=== PATIENT | male | born 1955 | race Caucasian/White ===

== ENCOUNTER → 2016-09-25 | Outpatient (CLI) | payer BC ==
[~2016-09-25] MED LIST: ASPI81TA28 PO; CLC6 PO; IBUP-103 PO; IBUP-1050 PO; METO25TA3 PO; METO50TA16 PO; METO50TA17 PO; TAMS0.4C38 PO; TYLOTC500 PO
--- NOTE | 2016-09-25 16:17 | ECHOCARDIOGRAM REPORT ---
*NOTICE TO RECEIVING REPUBLICAN AGENCY This information is strictly Confidential and protected under [place] law. [place] law prohibits you from making any further disclosure of this information unless further disclosure is expressly permitted by the written consent of the person to whom it pertains or is authorized by law. A general authorization for the release of medical or other information is not sufficient for this purpose. Hospital accepts no responsibility if the information is made available to any other person, INCLUDING THE PATIENT. Interpretation Summary * Name: ANA JOHNSON Study Date: 09/25/2016 01:51 PM BP: 145/90 mmHg * Patient Location: [facility] HR: 79 * : 1955 (M/d/yyyy) Gender: Male Height: 70 in * Age: 61 yrs Weight: 175 lb * Ordering Physician: GATITO MUELLER * Referring Physician: GATITO MUELLER * Performed By: Yvette Bueno RCS * * Reason For Study: AORTIC SCLEROSIS, MURMUR, R/O AORTIC STENOSIS * BSA: 2.0 m2 * -- Conclusions -- * Left ventricular systolic function is normal. * No regional wall motion abnormalities noted. * Ejection Fraction = 60-65%. * Prolapse or partial flail of the medial aspect of the posterior mitral leaflet. * There is severe mitral regurgitation. * The mitral regurgitant jet is anteriorly directed, which is consistent with posterior leaflet pathology. * There is mild tricuspid regurgitation. Procedure Details * A complete two-dimensional transthoracic echocardiogram was performed (2D, M-mode, Doppler and color flow Doppler). Left Ventricle * The left ventricle is normal in size. * There is normal left ventricular wall thickness. * Ejection Fraction = 60-65%. * Left ventricular systolic function is normal. * No regional wall motion abnormalities noted. Right Ventricle * The right ventricle is grossly normal size. * The right ventricular systolic function is normal as assessed by tricuspid annular plane systolic excursion (TAPSE) (normal >1.5 cm). Atria * The left atrium is mildly dilated. * Right atrium not well visualized. * No ASD detected; PFO is not assessed. Mitral Valve * Prolapse or partial flail of the medial aspect of the posterior mitral leaflet. * There is no mitral valve stenosis. * There is severe mitral regurgitation. * The mitral regurgitant jet is anteriorly directed, which is consistent with posterior leaflet pathology. Tricuspid Valve * The tricuspid valve is not well visualized, but is grossly normal. * There is mild tricuspid regurgitation. Aortic Valve * The aortic valve is trileaflet. * The aortic valve opens well. * Aortic valve sclerosis mild, without significant aortic valvular stenosis. * There is no significant aortic regurgitation. Pulmonic Valve * The pulmonary valve is not well seen, but the Doppler examination is normal without significant regurgitation or stenosis. Great Vessels * The aortic root and proximal ascending aorta are normal sized. * The pulmonary artery is not well visualized, but is probably normal size. Pericardium/Pleural * There is no pericardial effusion. Great Vessels * Dilated inferior vena cava with reduced collapsability with sniff indicates an elevated right atrial pressure of 15 mmHg MMode 2D Measurements and Calculations IVSd 1.3 cm IVSs 1.5 cm LVIDd 4.9 cm LVIDs 3.2 cm LVPWd 1.4 cm LVPWs 1.5 cm IVS/LVPW 0.97 FS 35.7 % EDV(Teich) 115.2 ml ESV(Teich) 40.3 ml EF(Teich) 65.0 % EDV(cubed) 120.9 ml ESV(cubed) 32.1 ml EF(cubed) 73.4 % % IVS thick 13.4 % % LVPW thick 12.2 % LV mass(C)d 266.2 grams LV mass(C)dI 135.0 grams/m\S\2 LV mass(C)s 170.3 grams LV mass(C)sI 86.4 grams/m\S\2 CO(Teich) 5.9 l/min CI(Teich) 3.0 l/min/m\S\2 SV(Teich) 74.9 ml SI(Teich) 38.0 ml/m\S\2 CO(cubed) 7.0 l/min CI(cubed) 3.6 l/min/m\S\2 SV(cubed) 88.8 ml SI(cubed) 45.0 ml/m\S\2 Ao root diam 3.3 cm Ao root area 8.7 cm\S\2 ACS 1.6 cm LA dimension 3.4 cm asc Aorta Diam 3.0 cm LA/Ao 1.0 LVOT diam 2.0 cm LVOT area 3.2 cm\S\2 LVAd ap4 36.4 cm\S\2 LVLd ap4 8.8 cm EDV(MOD-sp4) 124.0 ml LVAs ap4 20.5 cm\S\2 LVLs ap4 7.2 cm ESV(MOD-sp4) 50.0 ml EF(MOD-sp4) 59.7 % LVAd ap2 30.5 cm\S\2 LVLd ap2 8.5 cm EDV(MOD-sp2) 91.0 ml LVAs ap2 16.8 cm\S\2 LVLs ap2 6.8 cm ESV(MOD-sp2) 35.0 ml EF(MOD-sp2) 61.5 % CO(MOD-sp4) 5.8 l/min CI(MOD-sp4) 3.0 l/min/m\S\2 SV(MOD-sp4) 74.0 ml SI(MOD-sp4) 37.5 ml/m\S\2 CO(MOD-sp2) 4.4 l/min CI(MOD-sp2) 2.2 l/min/m\S\2 SV(MOD-sp2) 56.0 ml SI(MOD-sp2) 28.4 ml/m\S\2 Doppler Measurements and Calculations MV E max michelle 96.4 cm/sec MV A max michelle 72.5 cm/sec MV E/A 1.3 MV P1/2t max michelle 122.5 cm/sec MV P1/2t 98.7 msec MVA(P1/2t) 2.2 cm\S\2 MV dec slope 363.4 cm/sec\S\2 MV dec time 0.34 sec Ao V2 max 247.3 cm/sec Ao max PG 24.5 mmHg Ao max PG (full) 21.4 mmHg Ao V2 mean 179.2 cm/sec Ao mean PG 14.2 mmHg Ao mean PG (full) 12.4 mmHg Ao V2 VTI 46.7 cm NILDA(I,A) 1.0 cm\S\2 NILDA(I,D) 1.0 cm\S\2 NILDA(V,A) 1.1 cm\S\2 NILDA(V,D) 1.1 cm\S\2 LV V1 max PG 3.1 mmHg LV V1 mean PG 1.7 mmHg LV V1 max 88.3 cm/sec LV V1 mean 62.2 cm/sec LV V1 VTI 14.9 cm MR max michelle 362.0 cm/sec MR max PG 52.4 mmHg SV(Ao) 408.3 ml SI(Ao) 207.0 ml/m\S\2 SV(LVOT) 47.2 ml SI(LVOT) 23.9 ml/m\S\2 PA V2 max 209.9 cm/sec PA max PG 17.6 mmHg TR max michelle 260.6 cm/sec
== END | disposition home or self-care (01) ==
LOC: C.CPL 13:34
PROVIDERS: ATTEND Internal Medicine
DX: R01.1 Cardiac murmur, unspecified (principal); I08.3 Combined rheumatic disorders of mitral, aortic and tricuspid valves

== ENCOUNTER 2016-12-18 18:29 | Inpatient (IN) | payer BC ==
[~2016-12-18] VITALS: Ht 177.8 cm; Wt 59.8 kg
[2016-12-18] MEDS ORDERED: ADENOSINE IV SOLN 3 MG/ML 2 ML VIAL ONE ×2 (18:40→18:41)
--- NOTE | 2016-12-18 19:00 | EMERGENCY ROOM VISIT NOTE ---
History Report prepared by Jamel: Shayla Rodriguez Under the Supervision of: Caridad McguireO. First contact with patient: 18:40 Chief Complaint: IRREGULAR HEARTBEAT Stated Complaint: AFIB- S/P OPEN HEART SURGERY 11/30 History of Present Illness The patient is a 61 year old male who presents to the Emergency Room with complaints of constant heart palpitations starting about 5 hours ago. He also complains of some shortness of breath. He has a documented episode of SVT occurring about 10 years ago and he reports similar symptoms today. Since then, he has been having similar but milder episodes about once every month which are resolved with holding his breath. His last episode occurred about 3 days ago. He has a history of mitral valve repair on November 30 at [facility]. He had a heat catheterization in November which was clear. He denies any history of A- Fib. He is on Metoprolol. Pt denies headache, change in vision, fevers, chest pain, nausea, vomiting, diarrhea, pain with urination, and melena. Source of History: patient Onset: about 5 hours ago Position: chest Quality: other (heart palpitations) Timing: constant Associated Symptoms: + SOB, No chest pain, No diarrhea, No fevers, No headache, No nausea, No vomiting Review of Systems See HPI for pertinent positives & negatives. A total of 10 systems reviewed and were otherwise negative. Past Medical & Surgical Medical Problems: (1) No Known Active Medical Problems (2) SVT (supraventricular tachycardia) (3) SVT, POST MITRAL VALVE PROSTHESIS Surgical Problems: (1) H/O cardiac catheterization (2) History of mitral valve repair Family History Patient reports no known family medical history. Social History Smoking Status: Never Smoker Marital Status: Occupation Status: employed Current/Historical Medications Scheduled Aspirin (Aspirin Ec), 81 MG PO DAILY Metoprolol Succ (Toprol Xl) (Toprol-Xl), 12.5 MG PO BID Tamsulosin Hcl (Flomax), 0.4 MG PO DAILY Scheduled PRN Acetaminophen (Tylenol), 1,000 MG PO Q4 PRN for Pain Allergies Coded Allergies: No Known Allergies (Verified , 12/13/15) Physical Exam Vital Signs Date Time Temp Pulse Resp B/P Pulse Ox O2 Delivery O2 Flow Rate FiO2 12/18/16 22:35 102 5/30/17 22:31 Room Air 12/18/16 22:06 99 19 12/18/16 22:01 117/74 12/18/16 21:36 100 17 94 12/18/16 21:31 108/79 12/18/16 21:06 97 16 100 12/18/16 21:01 119/79 110/73 12/18/16 20:59 102 100 12/18/16 20:29 108 17 99 12/18/16 20:15 102/80 12/18/16 19:59 110 20 99 12/18/16 19:33 106/79 12/18/16 19:29 108 20 97 12/18/16 18:59 107 15 100 12/18/16 18:56 36.8 22 117/84 100 Room Air 12/18/16 18:54 117/84 12/18/16 18:53 79 12/18/16 18:48 186 Physical Exam GENERAL: Sitting up in bed, disheveled, mild distress, non-toxic EYE EXAM: normal conjunctiva OROPHARYNX: no exudate, no erythema, lips, buccal mucosa, and tongue normal and mucous membranes are moist NECK: supple, no nuchal rigidity, no adenopathy, non-tender CHEST: Old mid-sternal incision which is clean, dry, and intact LUNGS: Clear to auscultation. Normal chest wall mechanics HEART: Tachycardic rate. no murmurs, S1 normal and S2 normal ABDOMEN: abdomen soft, non-tender, normo-active bowel sounds, no masses, no rebound or guarding. BACK: Back is symmetrical on inspection and there is no deformity, no midline tenderness, no CVA tenderness. SKIN: no rashes and no bruising UPPER EXTREMITIES: upper extremities are grossly normal. LOWER EXTREMITIES: No pitting edema. Calves are equal bilaterally. NEURO EXAM: Normal sensorium, cranial nerves II-XII grossly intact, normal speech, no gross weakness of arms, no gross weakness of legs. Medical Decision & Procedures ER Provider Diagnostic Interpretation: X-ray results as stated below per my review and the radiologist's interpretation : SINGLE VIEW CHEST CLINICAL HISTORY: Dyspnea. FINDINGS: An AP, portable, upright chest radiograph is obtained. No prior studies are available for comparison at the time of dictation. The examination is degraded by portable technique and patient rotation. The patient is status post midline sternotomy and mitral valve surgery. The heart is enlarged. The pulmonary vasculature is noncongested. The lungs and pleural spaces are clear. No pneumothorax is seen. The skeletal structures appear osteopenic. The bony thorax is grossly intact. IMPRESSION: Cardiomegaly with no active disease in the chest. Electronically signed by: Henok Pisano M.D. 12/18/2016 7:19 PM Dictated Date/Time: 12/18/2016 7:[address]:Per my review, radiologist interpretation. CT ANGIOGRAM OF THE CHEST CLINICAL HISTORY: Atypical chest pain. COMPARISON STUDY: Chest x-ray dated 12/18/2016. TECHNIQUE: Following the IV administration of 115 cc of Optiray 320, CT angiogram of the chest was performed from the upper abdomen to the thoracic inlet utilizing the pulmonary embolus protocol. Images are reviewed in the axial, sagittal, and coronal planes. 3-D MIPS images are created and assessed. IV contrast was administered without complication. CT DOSE: 317.01 mGy.cm FINDINGS: Thyroid: Imaged portions of the thyroid gland are normal in size and attenuation. Thoracic aorta: There is mild atherosclerotic calcification of the thoracic aorta, which is normal in caliber and demonstrates standard 3-vessel arch anatomy. No dissection is seen. Pulmonary vasculature: The pulmonary trunk is normal in caliber. There are no filling defects identified in main, lobar, or segmental pulmonary branches to suggest pulmonary embolus. Heart: The patient is status post midline sternotomy and mitral valve surgery. The heart is enlarged and there is a small to moderate pericardial effusion. Reflux of contrast into the IVC and hepatic veins suggests cardiac dysfunction. Lungs and pleural spaces: There is bibasilar dependent atelectasis. No airspace consolidation or pleural effusion is identified. A 3 mm focus of nodular pleural thickening along the left major fissure is seen on image #87 and of doubtful significance. The trachea and central airways are clear. Mediastinum: Scattered subcentimeter mediastinal lymph nodes are not pathologically enlarged by size criteria. Cristin: Clear. Axillae: There is no axillary lymphadenopathy. Upper abdomen: Partially visualized upper abdominal viscera is within normal limits. Skeletal structures: The skeletal structures are osteopenic. No lytic or blastic bony lesions are seen. IMPRESSION: 1. There is no evidence of pulmonary embolus in the main, lobar, or segmental pulmonary arteries. 2. The lungs are clear noting dependent atelectasis. 3. Cardiomegaly noting a small to moderate pericardial effusion. 4. Additional findings as above. Electronically signed by: Henok Pisano M.D. 12/18/2016 9:02 PM Dictated Date/Time: 12/18/2016 8:57 PM Laboratory Results 12/18/16 19:22 Red Blood Count 4.17, Mean Corpuscular Volume 92.6, Mean Corpuscular Hemoglobin 29.5, Mean Corpuscular Hemoglobin Concent 31.9, Mean Platelet Volume 9.3, Neutrophils (%) (Auto) 78.3, Lymphocytes (%) (Auto) 13.8, Monocytes (%) (Auto) 6.9, Eosinophils (%) (Auto) 0.6, Basophils (%) (Auto) 0.3, Neutrophils # (Auto) 5.35, Lymphocytes # (Auto) 0.94, Monocytes # (Auto) 0.47, Eosinophils # (Auto) 0.04, Basophils # (Auto) 0.02 12/18/16 19:22 Test 12/18/16 19:22 White Blood Count 6.83 K/uL (4.8-10.8) Red Blood Count 4.17 M/uL (4.7-6.1) Hemoglobin 12.3 g/dL (14.0-18.0) Hematocrit 38.6 % (42-52) Mean Corpuscular Volume 92.6 fL (80-100) Mean Corpuscular Hemoglobin 29.5 pg (25-34) Mean Corpuscular Hemoglobin Concent 31.9 g/dl (32-36) Platelet Count 273 K/uL (130-400) Mean Platelet Volume 9.3 fL (7.4-10.4) Neutrophils (%) (Auto) 78.3 % Lymphocytes (%) (Auto) 13.8 % Monocytes (%) (Auto) 6.9 % Eosinophils (%) (Auto) 0.6 % Basophils (%) (Auto) 0.3 % Neutrophils # (Auto) 5.35 K/uL (1.4-6.5) Lymphocytes # (Auto) 0.94 K/uL (1.2-3.4) Monocytes # (Auto) 0.47 K/uL (0.11-0.59) Eosinophils # (Auto) 0.04 K/uL (0-0.5) Basophils # (Auto) 0.02 K/uL (0-0.2) RDW Standard Deviation 44.8 fL (36.4-46.3) RDW Coefficient of Variation 13.2 % (11.5-14.5) Immature Granulocyte % (Auto) 0.1 % Immature Granulocyte # (Auto) 0.01 K/uL (0.00-0.02) D-Dimer 3940 ug/L FEU (0-500) Anion Gap 8.0 mmol/L (3-11) Est Creatinine Clear Calc Drug Dose 60.1 ml/min Estimated GFR () 67.3 Estimated GFR (Non- 58.1 BUN/Creatinine Ratio 14.3 (10-20) Calcium Level 8.4 mg/dl (8.5-10.1) Magnesium Level 2.3 mg/dl (1.8-2.4) Total Bilirubin 0.3 mg/dl (0.2-1) Direct Bilirubin < 0.1 mg/dl (0-0.2) Aspartate Amino Transf (AST/SGOT) 119 U/L (15-37) Alanine Aminotransferase (ALT/SGPT) 106 U/L (12-78) Alkaline Phosphatase 179 U/L (45-117) Total Creatine Kinase 49 U/L (39-308) Creatine Kinase MB 1.7 ng/ml (0.5-3.6) Creatine Kinase MB Ratio 3.5 (0-3.0) Troponin I 0.082 ng/ml (0-0.045) Total Protein 6.4 gm/dl (6.4-8.2) Albumin 3.3 gm/dl (3.4-5.0) Thyroid Stimulating Hormone (TSH) 3.720 uIu/ml (0.300-4.500) Thyroxine (T4) 5.3 mcg/dl (4.5-10.9) Laboratory results per my review. Medications Administered Medications (Trade) Dose Ordered Sig/Krystal Route Start Time Stop Time Status Last Admin Dose Admin Adenosine 6 mg 6 mg STK-MED ONCE .ROUTE 12/18/16 18:41 12/18/16 18:42 DC 12/18/16 18:50 6 MG Sodium Chloride (Nss 1000ml) 1,000 ml @ 999 mls/hr Q1H1M STAT IV 12/18/16 20:25 12/18/16 21:25 DC 12/18/16 20:45 999 MLS/HR Metoprolol Tartrate (Lopressor Tab) 50 mg NOW STAT PO 12/18/16 22:34 12/18/16 22:37 DC 12/18/16 22:42 50 MG ECG Indication: palpitations Rate (beats per minute): 185 Rhythm: SVT Findings: ST depression (inferior and lateral leads), other (intraventricular conduction delay) Change: Repeat EKG showed sinus tachycardia, 106 beats per minute, ST depressions in inferior and lateral leads have now resolved, intraventricular conduction delay has now resolved. ED Course ED COURSE: Vital signs were reviewed and showed tachycardic. The patients medical record was reviewed The above diagnostic studies were performed and reviewed. ED treatments and interventions as stated above. 1839: The patient was evaluated in room B02. A complete history and physical examination was performed. 1840: Adenosine 6 mg IV 1849: He feels lightheaded but otherwise much better after the Adenosine. 2024: Sodium Chloride 1000 ml @ 999 mls/hr IV. I updated the patient. He is agreeable to a CTA. 2144: I discussed the patient's case with Dr. Torres, primary care physician with [facility]. Upon reevaluation, the patient is resting comfortably.I discussed my findings with the patient and he understands and agrees with the treatment plan. Based on the patients age, coexisting illnesses, exam and lab findings the decision to treat as an inpatient was made. The patient remained stable while under my care. The patient will be evaluated for further management. Medical Decision Differential diagnosis includes etiologies such as premature contractions, electrolyte abnormality, cardiac dysrhythmia, thyroid dysfunction, pulmonary embolism, infection, gastrointestinal, as well as others were entertained. Blood pressure screening: Patient was found to have normal blood pressure on screening and does not require follow-up. Medication Reconciliation: I attest that I have personally reviewed the patient' s current medication list. Patient is a 61-year-old male who presents to ER for palpitations. EKG was obtained and showed that he was in SVT. Heart rate was in the 180s. He was pale and ill-appearing at this time. Vagal maneuver was attempted but was unsuccessful. External defibrillator leads were attached patient was given 6 mg of adenosine. Following this he converted into a sinus tachycardia. ST depressions in the inferior leads improved. Patient does have a recent history of a mitral valve repair. Denies any blood thinners. CBC was unremarkable. BMP was unremarkable. Troponin was elevated at 0.08. Transaminitis was present. D-dimer was elevated and CT PE was performed. This did show a mild to moderate pericardial effusion. It also showed hepatic congestion which I favor secondary to his rate and the likely cause of the transaminitis. Based on his symptoms did elect to give him overnight and discussed this case with internal medicine. I do favor this elevated troponin is rate/demand related rather than ischemic. Consults Time Called: 2139 Consulting Physician: Dr. Torres, primary care physician with [facility] Returned Call: 2144 I discussed the patient's case with Dr. Torres, primary care physician with [facility]. Impression Primary Impression: SVT (supraventricular tachycardia) Additional Impressions: Elevated troponin Transaminitis Hepatic congestion Critical Care I have personally spent 35 minutes of critical care time in the direct management of this patient. This includes bedside care, interpretation of diagnostic studies, and testing, discussion with consultants, patient, and family members, and other required patient management activities. This 35 minutes is in excess of all separately billable procedures. Scribe Attestation The scribe's documentation has been prepared under my direction and personally reviewed by me in its entirety. I confirm that the note above accurately reflects all work, treatment, procedures, and medical decision making performed by me. Departure Information Dispostion Being Evaluated By Hospitalist Referrals Parish Patel M.D. (PCP) Patient Instructions My [facility] Problem Qualifiers
--- NOTE | 2016-12-18 19:20 | DIAGNOSTIC IMAGING REPORT ---
SINGLE VIEW CHEST CLINICAL HISTORY: Dyspnea. FINDINGS: An AP, portable, upright chest radiograph is obtained. No prior studies are available for comparison at the time of dictation. The examination is degraded by portable technique and patient rotation. The patient is status post midline sternotomy and mitral valve surgery. The heart is enlarged. The pulmonary vasculature is noncongested. The lungs and pleural spaces are clear. No pneumothorax is seen. The skeletal structures appear osteopenic. The bony thorax is grossly intact. IMPRESSION: Cardiomegaly with no active disease in the chest. Electronically signed by: Henok Pisano M.D. 12/18/2016 7:19 PM Dictated Date/Time: 12/18/2016 7:18 PM
[2016-12-18 19:35] LABS: BASO % 0.3 %; BASO ABS # 0.02 K/uL (0-0.2); COMPLETE YES; EOS % 0.6 %; HEMATOCRIT 38.6 % (42-52); IG% 0.1 %; LYMPH % 13.8 %; LYMPH ABS # 0.94 K/uL (1.2-3.4); MEAN CELL VOLUME 92.6 fL (80-100); MEAN CORPUSCULAR HEMOGLOBIN 29.5 pg (25-34); MEAN CORPUSCULAR HGB CONC 31.9 g/dl (32-36); MEAN PLATELET VOLUME 9.3 fL (7.4-10.4); MONO % 6.9 %; NEUT % 78.3 %; PLATELET COUNT 273 K/uL (130-400); RED BLOOD COUNT 4.17 M/uL (4.7-6.1); WHITE BLOOD COUNT 6.83 K/uL (4.8-10.8)
[2016-12-18] MEDS ORDERED: TYLOTC500 PO (19:36)
[2016-12-18] MEDS ORDERED: ASPI81TA28 PO (19:36)
[2016-12-18] MEDS ORDERED: TAMS0.4C38 PO (19:36)
[2016-12-18] MEDS ORDERED: METO25TA3 PO (19:36)
[2016-12-18 20:00] LABS: ALT/SGPT 106 U/L (12-78); AST/SGOT 119 U/L (15-37); BLOOD UREA NITROGEN 19 mg/dl (7-18); BUN/CREATININE RATIO 14.3 (10-20); CALCIUM 8.4 mg/dl (8.5-10.1); CARBON DIOXIDE 25 mmol/L (21-32); CHLORIDE 111 mmol/L (98-107); GLUCOSE 119 mg/dl (70-99); POTASSIUM 4.5 mmol/L (3.5-5.1); SODIUM 144 mmol/L (136-145)
[2016-12-18 20:10] LABS: ALKALINE PHOSPHATASE 179 U/L (45-117)
[2016-12-18] MEDS ORDERED: SODIUM CHLORIDE 0.9% 1000ML 1,000 ML IV STA (20:25)
[2016-12-18] MEDS ORDERED: OPTIRAY 320 IV PRN (21:00)
--- NOTE | 2016-12-18 21:03 | DIAGNOSTIC IMAGING REPORT ---
CT ANGIOGRAM OF THE CHEST CLINICAL HISTORY: Atypical chest pain. COMPARISON STUDY: Chest x-ray dated 12/18/2016. TECHNIQUE: Following the IV administration of 115 cc of Optiray 320, CT angiogram of the chest was performed from the upper abdomen to the thoracic inlet utilizing the pulmonary embolus protocol. Images are reviewed in the axial, sagittal, and coronal planes. 3-D MIPS images are created and assessed. IV contrast was administered without complication. CT DOSE: 317.01 mGy.cm FINDINGS: Thyroid: Imaged portions of the thyroid gland are normal in size and attenuation. Thoracic aorta: There is mild atherosclerotic calcification of the thoracic aorta, which is normal in caliber and demonstrates standard 3-vessel arch anatomy. No dissection is seen. Pulmonary vasculature: The pulmonary trunk is normal in caliber. There are no filling defects identified in main, lobar, or segmental pulmonary branches to suggest pulmonary embolus. Heart: The patient is status post midline sternotomy and mitral valve surgery. The heart is enlarged and there is a small to moderate pericardial effusion. Reflux of contrast into the IVC and hepatic veins suggests cardiac dysfunction. Lungs and pleural spaces: There is bibasilar dependent atelectasis. No airspace consolidation or pleural effusion is identified. A 3 mm focus of nodular pleural thickening along the left major fissure is seen on image #87 and of doubtful significance. The trachea and central airways are clear. Mediastinum: Scattered subcentimeter mediastinal lymph nodes are not pathologically enlarged by size criteria. Cristin: Clear. Axillae: There is no axillary lymphadenopathy. Upper abdomen: Partially visualized upper abdominal viscera is within normal limits. Skeletal structures: The skeletal structures are osteopenic. No lytic or blastic bony lesions are seen. IMPRESSION: 1. There is no evidence of pulmonary embolus in the main, lobar, or segmental pulmonary arteries. 2. The lungs are clear noting dependent atelectasis. 3. Cardiomegaly noting a small to moderate pericardial effusion. 4. Additional findings as above. Electronically signed by: Henok Pisano M.D. 12/18/2016 9:02 PM Dictated Date/Time: 12/18/2016 8:57 PM
[2016-12-18 22:31] VITALS: Ht 177.8 cm; Wt 59.8 kg
[2016-12-18] MEDS ORDERED: METOPROLOL TARTRATE 50 MG TAB PO STA (22:34)
[2016-12-18] MEDS ORDERED: LORAZEPAM 0.5 MG TAB PO PRN (22:45)
[2016-12-18] MEDS ORDERED: ACETAMINOPHEN 500 MG TAB PO PRN (22:45)
[2016-12-18 23:11] VITALS: O2SAT 96
[2016-12-18 23:14] LABS: CKMB/CK RATIO 3.5 (0-3.0); MAGNESIUM 2.3 mg/dl (1.8-2.4); THYROID STIMULATING HORMONE 3.72 uIu/ml (0.300-4.500)
[2016-12-19] VITALS (7 sets, daily range): BP systolic 95–129; BP diastolic 61–85; PULSE 81–99; TEMP 36.7–37.9; O2SAT 95–99
[2016-12-19 00:58] LABS: PARTIAL THROMBOPLASTIN RATIO 1.1; PROTHROMBIN TIME (PATIENT) 10.7 SECONDS (9.0-12.0)
[2016-12-19 01:13] LABS: CKMB/CK RATIO 3.5 (0-3.0)
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
[2016-12-19 06:16] LABS: BASO % 0.4 %; BASO ABS # 0.02 K/uL (0-0.2); COMPLETE YES; EOS % 1.4 %; HEMATOCRIT 35.8 % (42-52); IG% 0.4 %; LYMPH % 24.8 %; LYMPH ABS # 1.41 K/uL (1.2-3.4); MEAN CELL VOLUME 92.7 fL (80-100); MEAN CORPUSCULAR HEMOGLOBIN 30.1 pg (25-34); MEAN CORPUSCULAR HGB CONC 32.4 g/dl (32-36); MEAN PLATELET VOLUME 8.7 fL (7.4-10.4); MONO % 8.8 %; NEUT % 64.2 %; PLATELET COUNT 256 K/uL (130-400); RED BLOOD COUNT 3.86 M/uL (4.7-6.1); WHITE BLOOD COUNT 5.69 K/uL (4.8-10.8)
[2016-12-19 06:58] LABS: BUN/CREATININE RATIO 14.7 (10-20); CALCIUM 8.4 mg/dl (8.5-10.1); CREATININE 1.2 mg/dl (0.60-1.40)
[2016-12-19 07:05] LABS: CKMB/CK RATIO 4.6 (0-3.0)
[2016-12-19] MEDS: ASPIRIN 81 MG ECTAB PO SCH (07:40)
[2016-12-19] MEDS: TAMSULOSIN HCL 0.4 MG CAP PO SCH (07:41)
[2016-12-19] MEDS: DOCUSATE SODIUM 100 MG CAP PO SCH ×2 (07:41→21:58)
[2016-12-19] MEDS: METOPROLOL TARTRATE 50 MG TAB PO SCH ×2 (07:41→21:58)
--- NOTE | 2016-12-19 10:32 | CARDIOLOGY CONSULTATION ---
DATE OF CONSULTATION: 12/19/2016 DATE OF CONSULTATION: 12/19/2016. REFERRING PHYSICIAN: Parish Torres M.D. CHIEF COMPLAINT: SVT. HISTORY OF PRESENT ILLNESS: Mr. Sudhakar Nazario is a 61-year-old gentleman with a history of SVT who experienced an episode of prolonged tachycardia yesterday. The patient reports having had symptoms of palpitations and rapid heartbeat dating back several years. He has had documented narrow complex tachycardia in the past and was treated with adenosine during the initial episode. Since that time he has infrequent and relatively brief episodes of tachycardia that last approximately 10-15 minutes. They occur perhaps twice per month and are not precipitated by any specific activity or change in position. He commonly can hold his breath and terminate the episodes. He does not appear to have associated symptoms. The patient was also discovered recently to have severe mitral regurgitation associated with a prolapsing segment of the posterior leaflet. He was seen at [facility] and underwent mitral valve repair on 11/30/2016. The procedure itself was uncomplicated and the patient has been recovering. He states that since his operation he has felt progressively better and is nearly back to his baseline. He states that currently he has an element of fatigue, but no significant dyspnea and minimal chest discomfort except with certain motions or stretching of the chest. Prior to his mitral valve repair the patient did report an element of exercise intolerance which prompted his evaluation. He did not have any chest pain leading up to his surgery. Yesterday his episode began without provocation and lasted approximately 5 hours prior to an evaluation at the [facility]. In the Emergency Room, he was reported to have a narrow complex tachycardia with some element of intraventricular conduction delay. Based on his history and EKG he was administered adenosine with termination of the arrhythmia. Overnight, the patient claims to have been feeling well. This morning he states his breathing is good. He denies any symptoms of chest discomfort. He is not aware of any current palpitations. PAST MEDICAL HISTORY: Significant for: 1. Mitral regurgitation status post repair of the posterior leaflet on 11/30/2016. 2. Ligation of left atrial appendage on 11/30/2016. 3. Mitral valve annuloplasty. 4. History of carpal tunnel syndrome, status post release. 5. Colonic polyps. PAST SURGICAL HISTORY: Includes: 1. Aforementioned mitral valve repair, left atrial appendage ligation and mitral valve annuloplasty. 2. Inguinal hernia repair. 3. Right carpal tunnel release. CURRENT MEDICATIONS: Include metoprolol 12.5 mg b.i.d., aspirin 81 mg daily, Flomax 0.4 mg daily, Tylenol p.r.n. basis. MEDICAL ALLERGIES: None. FAMILY HISTORY: Mother appeared to have premature coronary disease having of a myocardial infarction in her 50s. According to the patient, she was a smoker and was otherwise in poor health. Father at 92. No family history of premature cardiac , unexplained deaths, or tachyarrhythmias. No family history of frequent syncope. SOCIAL HISTORY: The patient is nonsmoker and drinks socially. 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 REVIEW OF SYSTEMS: Complete 10-system review of systems was performed and the pertinent positives noted in the history of present illness, the remainder being negative. PHYSICAL EXAMINATION: GENERAL: The patient does not appear to be in acute distress. He is a pleasant individual who is alert and oriented. His mood and affect appeared normal. He answered all questions appropriately. CURRENT VITAL SIGNS: Include blood pressure 112/71 with pulse of 89. HEAD, EYES, EARS, NOSE, AND THROAT: His sclerae are anicteric. Pupils are equal, reactive to light and accommodation. Extraocular movements were intact. Palpation of submandibular region did not reveal any significant lymphadenopathy. The carotids are palpable bilaterally. There are no bruits on auscultation. I did not appreciate any element of jugular venous distention. The thyroid is not enlarged. LUNGS: Auscultation of both lung jeffery reveal them to be clear. There were no rales, wheezes or rhonchi. He appeared to have good respiratory effort without use of accessory muscles. CARDIAC EXAMINATION: Revealed him to be in a regular rhythm. S1 and S2 appeared to be normal. There were no murmurs on exam. He had a sternotomy scar that appeared to be healing well. ABDOMEN: Soft and nontender. EXTREMITIES: Evaluation of both wrists revealed radial pulses that were equal in intensity. There is no evidence of cyanosis or clubbing. Evaluation of lower extremities did not reveal any significant peripheral edema. I did not appreciate any rashes on exam today. LABORATORY STUDIES: Obtained at [facility] include a white cell count of 5.6, hemoglobin of 11.6, a platelet count of 256. Sodium 146, potassium is 4.0, BUN was 18, creatinine was 1.2. Initial AST was 119, now down to 41. Initial ALT was 106, now down to 77. Initial cardiac troponin was 0.082, most recent being 0.19. A 12-lead EKG was available for review. This revealed a sinus tachycardia. Imaging studies were performed at the time of admission which included a chest x-ray which demonstrated mild cardiomegaly but no active pulmonary disease. A chest CTA was also performed which excluded the presence of pulmonary embolus. There was evidence of pericardial effusion. I reviewed his records from [facility] including report of his cardiac catheterization in October 2016. This revealed normal coronary arteries without evidence of significant obstructive coronary disease. ASSESSMENT AND PLAN: 1. Supraventricular tachycardia: While I did not have an opportunity to review the presenting arrhythmia his history and response to adenosine suggests this is reentrant arrhythmia. He is known to have preserved left ventricular systolic function. Generally speaking, he had few symptoms associated with the arrhythmia and outside of the extended episode yesterday he felt well. We discussed the options for treatment including no change in treatment, medical therapy or catheter based treatment. His beta jennifer was increased last night and at this point he is in favor of continuing medical therapy. If he continues to tolerate the higher dose of beta jennifer this would seem to be a reasonable treatment plan. If he continues to have symptomatic episodes, more prolonged episodes or begins to affect his lifestyle catheter based therapy can be entertained. 2. Elevated cardiac biomarkers: The patient did have mildly elevated cardiac troponins likely related to an extended period of high heart rates. He is known to have normal coronary arteries and had no symptoms of chest discomfort or coronary insufficiency associated with the extended episode yesterday. At this point, I do not feel any additional ischemic evaluation is necessary. 3. Mitral regurgitation: The patient is status post repair. His examination is normal and I suspect he has had a successful procedure. He is currently regaining his strength and stamina, and has not developed any recurrent dyspnea associated with activity. 4. Pericardial effusion: This was described as mild to moderate on a CT scan. This is not unusual after surgery of his nature. He has an echocardiogram ordered for later today and we will evaluate the effusion on that study. LUIS
--- NOTE | 2016-12-19 13:06 | ECHOCARDIOGRAM REPORT ---
*NOTICE TO RECEIVING CONSTITUTION PARTY AGENCY This information is strictly Confidential and protected under [place] law. [place] law prohibits you from making any further disclosure of this information unless further disclosure is expressly permitted by the written consent of the person to whom it pertains or is authorized by law. A general authorization for the release of medical or other information is not sufficient for this purpose. Hospital accepts no responsibility if the information is made available to any other person, INCLUDING THE PATIENT. Interpretation Summary * Name: ANA JOHNSON Study Date: 12/19/2016 10:19 AM BP: 112/71 mmHg * Patient Location: [facility] HR: 89 * : 1955 (M/d/yyyy) Gender: Male Height: 70 in * Age: 61 yrs Ethnicity: CA Weight: 178 lb * Ordering Physician: Parish Patel * Referring Physician: Self, Referred * Performed By: Brina Christensen RDCS * * Reason For Study: SVT, PERICARDIAL EFFUSION, MVR * BSA: 2.0 m2 * History: SVT, POST MVR * -- Conclusions -- * There is mild concentric left ventricular hypertrophy. * Left ventricular systolic function is low normal. * Septal motion is consistent with post-operative state. * The left atrium is mildly dilated. * The posterior mitral leaflet is thickened and fixed consistent with prior mitral repair surgery. * There is no mitral regurgitation noted. * Very small and mostly posterior pericardial effusion. * Compared to a study from 09/2016, there has been interim repair of the mitral valve Procedure Details * A complete two-dimensional transthoracic echocardiogram was performed (2D, M-mode, Doppler and color flow Doppler). Left Ventricle * The left ventricle is normal in size. * There is mild concentric left ventricular hypertrophy. * Ejection Fraction = 50-55%. * Left ventricular systolic function is low normal. * Septal motion is consistent with post-operative state. Right Ventricle * The right ventricle is grossly normal size. * The right ventricular systolic function is normal. Atria * The left atrium is mildly dilated. * Right atrial size is normal. Mitral Valve * The posterior mitral leaflet is thickened and fixed consistent with prior mitral repair surgery. * There is no mitral valve stenosis. * There is no mitral regurgitation noted. * An annuloplasty ring is noted in the mitral position. Tricuspid Valve * The tricuspid valve is not well visualized, but is grossly normal. * Significant tricuspid regurgitation is absent. Aortic Valve * The aortic valve is not well visualized. * No hemodynamically significant valvular aortic stenosis. * There is no significant aortic regurgitation. Great Vessels * The aortic root is normal size. Pericardium/Pleural * Very small and mostly posterior pericardial effusion. Great Vessels * Normal inferior vena cava diameter and respiratory variation suggests normal central venous pressure. MMode 2D Measurements and Calculations IVSd 1.4 cm IVSs 1.9 cm LVIDd 4.5 cm LVIDs 3.5 cm LVPWd 1.4 cm LVPWs 1.5 cm IVS/LVPW 1.0 FS 22.4 % EDV(Teich) 90.6 ml ESV(Teich) 49.5 ml EF(Teich) 45.4 % EDV(cubed) 88.8 ml ESV(cubed) 41.4 ml EF(cubed) 53.3 % % IVS thick 39.2 % % LVPW thick 12.8 % LV mass(C)d 238.4 grams LV mass(C)dI 120.0 grams/m\S\2 LV mass(C)s 242.8 grams LV mass(C)sI 122.2 grams/m\S\2 SV(Teich) 41.1 ml SI(Teich) 20.7 ml/m\S\2 SV(cubed) 47.4 ml SI(cubed) 23.8 ml/m\S\2 Ao root diam 3.7 cm Ao root area 10.5 cm\S\2 LA dimension 4.1 cm LA/Ao 1.1 LVAd ap4 32.0 cm\S\2 LVLd ap4 7.8 cm EDV(MOD-sp4) 110.8 ml EDV(sp4-el) 111.8 ml LVAs ap4 24.2 cm\S\2 LVLs ap4 8.0 cm ESV(MOD-sp4) 65.9 ml ESV(sp4-el) 62.6 ml EF(MOD-sp4) 40.5 % EF(sp4-el) 44.0 % LVAd ap2 35.2 cm\S\2 LVLd ap2 9.2 cm EDV(MOD-sp2) 109.7 ml EDV(sp2-el) 114.5 ml LVAs ap2 23.9 cm\S\2 LVLs ap2 8.0 cm ESV(MOD-sp2) 58.4 ml ESV(sp2-el) 60.5 ml EF(MOD-sp2) 46.8 % EF(sp2-el) 47.1 % LVLd %diff 15.3 % EDV(MOD-bp) 120.5 ml LVLs %diff 0.56 % ESV(MOD-bp) 61.4 ml EF(MOD-bp) 49.0 % SV(MOD-sp4) 44.8 ml SI(MOD-sp4) 22.6 ml/m\S\2 SV(MOD-sp2) 51.3 ml SI(MOD-sp2) 25.8 ml/m\S\2 SV(MOD-bp) 59.1 ml SI(MOD-bp) 29.7 ml/m\S\2 SV(sp4-el) 49.2 ml SI(sp4-el) 24.8 ml/m\S\2 SV(sp2-el) 54.0 ml SI(sp2-el) 27.2 ml/m\S\2 Doppler Measurements and Calculations MV E max michelle 144.0 cm/sec MV A max michelle 132.9 cm/sec MV E/A 1.1 MV dec time 0.33 sec Ao V2 max 119.0 cm/sec Ao max PG 5.7 mmHg Ao max PG (full) 2.4 mmHg LV V1 max PG 3.3 mmHg LV V1 max 90.4 cm/sec
--- NOTE | 2016-12-20 01:11 | PROGRESS NOTE ---
DATE: 12/19/2016 SUBJECTIVE: A 61-year-old male admitted with supraventricular tachycardia. He underwent a mitral valve repair 2 weeks ago because of severe mitral regurgitation and a flail posterior mitral valve leaflets. He is doing well. He was treated initially with Adenocard in the Emergency Room and he converted back to sinus rhythm. He has not had any recurrence of his SVT. His metoprolol dose was increased to 50 mg twice a day. He denied any headache or dizziness or lightheadedness. No chest pain, no shortness of breath. No abdominal pain, no nausea or vomiting. No pain in his back or extremities. PHYSICAL EXAMINATION: GENERAL: Well developed in no distress. VITAL SIGNS: Blood pressure 112/71, pulse 89, respirations 20, temperature 36.8, oxygen saturation 97% on room air. SKIN: Warm and dry. No rash. HEENT: No mucosal abnormality. NECK: No JVD. No adenopathy. HEART: Regular heart sounds. LUNGS: Clear. ABDOMEN: Soft, nontender. EXTREMITIES: No edema, clubbing, or cyanosis. TODAY'S LABORATORY TESTS: WBC count 5690, hemoglobin 11.6, hematocrit 35.8, platelet count 256,000. Sodium 146, potassium 4.0, chloride 112, CO2 28, BUN 18, creatinine 1.2, glucose 100. Calcium 8.4, total bilirubin 0.4, AST 41, ALT 77, alkaline phosphatase 144, total CK 39, MB fraction 1.8, troponin I 0.194, total protein 5.8, albumin 2.9. His echocardiogram was done. Showed the postoperative changes. ASSESSMENT: 1. Supraventricular tachycardia. 2. Status post repair of mitral valve for severe mitral regurgitation. 3. Abnormal liver enzymes which have markedly improved. 4. Elevated troponin I, most likely related to his recent surgery and his episode of prolonged supraventricular tachycardia. PLAN: 1. Continuing the same medications. 2. Encouraged ambulation. 3. The patient was seen in cardiology consultation by Dr. Max. 4. We will continue monitoring his rate and rhythm. If he remains stable, I anticipate send him home on 12/20/2016. [facility]FFEE HOSPITALBijan
[2016-12-20 03:48] VITALS: BP 107/74; PULSE 90; TEMP 37.1; O2SAT 95
[2016-12-20 06:33] LABS: BASO % 0.3 %; BASO ABS # 0.02 K/uL (0-0.2); COMPLETE YES; EOS % 0.6 %; HEMATOCRIT 35.6 % (42-52); IG% 0.2 %; MEAN CELL VOLUME 91.5 fL (80-100); MEAN CORPUSCULAR HEMOGLOBIN 30.6 pg (25-34); MEAN CORPUSCULAR HGB CONC 33.4 g/dl (32-36); MEAN PLATELET VOLUME 8.8 fL (7.4-10.4); MONO % 8.9 %; PLATELET COUNT 246 K/uL (130-400); RED BLOOD COUNT 3.89 M/uL (4.7-6.1)
[2016-12-20 07:15] LABS: BUN/CREATININE RATIO 14.9 (10-20); CALCIUM 8.3 mg/dl (8.5-10.1); CREATININE 1.1 mg/dl (0.60-1.40)
[2016-12-20 07:50] VITALS: BP 108/65; PULSE 100; TEMP 36.8; O2SAT 97
[2016-12-20] MEDS ORDERED: METO50TA17 PO (07:51)
--- NOTE | 2016-12-20 07:55 | Discharge Instructions ---
Discharge Instructions Date of Service Dec 20, 2016. Admission Reason for Admission: Svt, Post Mitral Valve Prothesis Discharge Discharge Diagnosis / Problem: SUPRAVENTRICULAR TACHYCARDIA Discharge Goals Goal(s): Decrease discomfort, Increase independence, Improve disease control Activity Recommendations Activity Limitations: resume your previous activity . Instructions / Follow-Up Instructions / Follow-Up DR KUMAR IN ONE WEEK DR DYKES SCHEDULED Current Hospital Diet Patient's current hospital diet: AHA Diet (Heart Healthy) Discharge Diet Recommended Diet: Regular Diet Pending Studies Studies pending at discharge: no Medical Emergencies . Who to Call and When: Medical Emergencies: If at any time you feel your situation is an emergency, please call 911 immediately. . Non-Emergent Contact Non-Emergency issues call your: Primary Care Provider . . "Provider Documentation" section prepared by Parish Kumar. . VTE Core Measure Inpt VTE Proph given/why not?: Treatment not indicated
[2016-12-20] MEDS: METOPROLOL TARTRATE 50 MG TAB PO SCH (08:39)
[2016-12-20] MEDS: DOCUSATE SODIUM 100 MG CAP PO SCH (08:39)
[2016-12-20] MEDS: TAMSULOSIN HCL 0.4 MG CAP PO SCH (08:39)
[2016-12-20] MEDS: ASPIRIN 81 MG ECTAB PO SCH (08:40)
[2016-12-20 08:43] VITALS: BP 108/65; PULSE 100; TEMP 36.8; O2SAT 97
--- NOTE | 2016-12-20 21:05 | PROGRESS NOTE ---
DATE: 12/20/2016 SUBJECTIVE: A 61-year-old male admitted with supraventricular tachycardia. Initially, his heart rate was at 185 beats per minute. He was treated with Adenocard and he converted back to normal sinus rhythm. The patient underwent repair of his mitral valve 2 weeks prior to his admission because of severe mitral regurgitation and markedly prolapsed and flail posterior mitral valve leaflets. The patient did well after his admission. He was continued on metoprolol, but the dose was increased to 50 mg twice a day. The patient was seen in cardiology consultation by Dr. Max. An echocardiogram was done. It showed the postoperative changes. No other abnormality was noted. As noted, the patient did not have any recurrence of his supraventricular tachycardia. He was completely asymptomatic. He was ambulating. PHYSICAL EXAMINATION: GENERAL: Well developed in no distress. VITAL SIGNS: Blood pressure 108/65, pulse 100, respirations 16, temperature 36.8, oxygen saturation 97% on room air. SKIN: Warm and dry. No rash. HEENT: No mucosal abnormality. NECK: No JVD. No adenopathy. HEART: Regular heart sounds. LUNGS: Clear. ABDOMEN: Soft, nontender. EXTREMITIES: No edema, clubbing, or cyanosis. TODAYS' LABORATORY TESTS: WBC count 6500, hemoglobin 11.9, hematocrit 35.6, platelet count 246,000. Sodium 142, potassium 4.0, chloride 107, CO2 28, BUN 16, creatinine 1.1, glucose 109. Calcium 8.3, total bilirubin 0.8, AST 19, ALT 54, alkaline phosphatase 133, total protein 5.9, and albumin 3.0. ASSESSMENT: 1. Supraventricular tachycardia. 2. Status post repair of his mitral valve. PLAN: 1. Overall, his condition improved. He remains stable. Not having any problems as far as any recurrence of his SVT. He is ambulating and tolerating his diet. 2. The patient was discharged home today. 3. He is to follow up with Dr. Max as scheduled in the middle of the month. 4. I will see him in the office in 1 week. 5. He did have an episode of urinary retention after his surgery and he was started on Flomax. At this time, I will just keep him off the Flomax and monitor for any recurrence of any urinary symptoms.
--- NOTE | 2016-12-23 21:31 | DISCHARGE SUMMARY ---
DISCHARGE DIAGNOSES: 1. Supraventricular tachycardia. 2. Status post repair of mitral valve for severe mitral valve prolapse and flail posterior mitral valve leaflet. DISCHARGE MEDICATIONS: Include: 1. Metoprolol tartrate 50 mg p.o. twice a day. 2. Aspirin 81 mg daily. CONSULTATIONS: 1. Dr. Mason Max in cardiology. HISTORY OF PRESENT ILLNESS: Mr. Nazario is a 61-year-old male admitted through the Emergency Room with multiple problems including supraventricular tachycardia with a rate of 185 beats per minute. He had a recent mitral valve surgery for severe mitral valve regurgitation related to severe prolapse and flail posterior mitral valve leaflet. He also had elevation of his troponin I and his liver enzymes. The patient with a history of supraventricular tachycardia, the first episode occurring back in 2005. Initially, he was treated with oral metoprolol, but then the medication was discontinued. Recently, he had an echocardiogram done because of known mitral regurgitation and Dr. Pacheco suspected a flail mitral valve leaflet. He had severe mitral regurgitation. The patient was referred to [facility] where he had a cardiac catheterization did not show any evidence of coronary artery disease and subsequently he had repair of his mitral valve. The patient stated that on Saturday prior to his admission, he had a short episode where he felt that his heart was racing, but he was able to control it, only lasted for about 15 seconds, but on the day of admission, this episode started around noontime and it persisted until he came to the Emergency Room. He was seen by Dr. Dueñas. He was treated with IV Adenocard and his arrhythmia was controlled. His D-dimer was elevated. A CT scan of the chest was done. There was no evidence of any pulmonary embolism. I saw the patient in the Emergency Room and he was admitted for further treatment. PAST MEDICAL HISTORY, SOCIAL HISTORY AND FAMILY HISTORY: All as noted. ALLERGIES: None. MEDICATIONS ON ADMISSION: All as noted on his home medication list. PHYSICAL EXAMINATION AND ADMISSION LABORATORY TESTS: All as noted. HOSPITAL COURSE: The patient was admitted to PCU with telemetry. Resuscitation level 1. Laboratory tests were ordered. Cardiac isoenzymes and serial electrocardiograms were ordered. Liver chemistries were also ordered. Echocardiogram was ordered. His metoprolol dose was changed to 50 mg twice a day. Cardiology consultation was requested from Dr. Mason Max. The patient was scheduled to see him for cardiology followup in mid December for the first visit after his mitral valve surgery. The patient was admitted. He was monitored. He did not have any evidence of any recurrence of his supraventricular tachycardia. He did exhibit at times premature ventricular contractions. His echocardiogram was quite unremarkable. There were no issues related to his mitral valve surgery. He was seen in consultation by Dr. Max. He was continued on his same medication. The option of ablation treatment was discussed with the patient by Dr. Max. This in case his arrhythmia becomes more persistent and frequent. Overall, his hospitalization and was unremarkable. He did not have any recurrence of his arrhythmias. His liver enzymes decreased to the normal range. His troponin I also decreased. The patient was ambulating. Tolerating his diet. He had no complaints. He was discharged home. Medication as noted above. Follow up with Dr. Max as scheduled. Follow up with me in the office in 1 week.
[2017-03-26] MEDS ORDERED: METO50TA16 PO (07:41)
[2017-03-26] MEDS ORDERED: IBUP-103 PO (07:41)
== END 2016-12-20 10:07 | disposition home or self-care (01) | DRG 309 ==
LOC: ENRESERVDT → ENRESERVTM → C.EDB 18:30 → C.2T 22:48
PROVIDERS: ADMIT Internal Medicine; ATTEND Internal Medicine
DX: I47.1 Supraventricular tachycardia (principal); I31.3 Pericardial effusion (noninflammatory); R33.8 Other retention of urine; R79.1 Abnormal coagulation profile; R78.89 Finding of other specified substances, not normally found in blood; R74.0 Nonspecific elevation of levels of transaminase and lactic acid dehydrogenase [LDH]; Z79.899 Other long term (current) drug therapy; Z79.82 Long term (current) use of aspirin; Z98.890 Other specified postprocedural states; Z82.49 Family history of ischemic heart disease and other diseases of the circulatory system; Z80.42 Family history of malignant neoplasm of prostate

== ENCOUNTER 2017-02-18 10:18 | Inpatient (IN) | payer BC ==
[~2017-02-18] VITALS: Ht 177.8 cm; Wt 86.3 kg
[~2017-02-18 10:18] MED LIST changes: -CLC6 PO; -IBUP-103 PO; -IBUP-1050 PO; -METO25TA3 PO; -METO50TA16 PO; -TAMS0.4C38 PO; -TYLOTC500 PO
[2017-02-18] MEDS ORDERED: ADENOSINE IV SOLN 3 MG/ML 2 ML VIAL IV STA (10:33)
[2017-02-18] MEDS ORDERED: ADENOSINE IV SOLN 3 MG/ML 2 ML VIAL ONE (10:35)
[2017-02-18 10:49] LABS: BASO % 0.1 %; BASO ABS # 0.01 K/uL (0-0.2); COMPLETE YES; EOS % 0.1 %; HEMATOCRIT 42.8 % (42-52); IG% 0.3 %; LYMPH % 9.8 %; LYMPH ABS # 1.17 K/uL (1.2-3.4); MEAN CELL VOLUME 85.9 fL (80-100); MEAN CORPUSCULAR HEMOGLOBIN 28.5 pg (25-34); MEAN CORPUSCULAR HGB CONC 33.2 g/dl (32-36); MEAN PLATELET VOLUME 10.9 fL (7.4-10.4); NEUT % 81.7 %; PLATELET COUNT 198 K/uL (130-400); RED BLOOD COUNT 4.98 M/uL (4.7-6.1); WHITE BLOOD COUNT 11.97 K/uL (4.8-10.8)
[2017-02-18 10:57] LABS: INR 1.1 (0.9-1.1); PARTIAL THROMBOPLASTIN RATIO 1.1; PROTHROMBIN TIME (PATIENT) 11.9 SECONDS (9.0-12.0)
[2017-02-18] MEDS ORDERED: OPTIRAY 320 IV PRN (11:00)
--- NOTE | 2017-02-18 11:04 | DIAGNOSTIC IMAGING REPORT ---
CHEST ONE VIEW PORTABLE HISTORY: Evaluate Fever/Sepsis COMPARISON: Chest 12/18/2016. FINDINGS: No pneumothorax. Trace left pleural effusion. Left basilar linear densities have progressed. The heart is mildly enlarged. This is increased in size. Poststernotomy changes and a mitral valve ring are again noted. The right lung is clear. IMPRESSION: Trace left pleural effusion and left basilar densities have progressed. This may represent atelectasis or pneumonia. Mild cardiomegaly has also increased in size. Electronically signed by: Walter Ellington M.D. 02/18/2017 11:03 AM Dictated Date/Time: 02/18/2017 11:01 AM
[2017-02-18 11:12] LABS: ALT/SGPT 57 U/L (12-78); BLOOD UREA NITROGEN 27 mg/dl (7-18); BUN/CREATININE RATIO 14.4 (10-20); CALCIUM 8.7 mg/dl (8.5-10.1); CARBON DIOXIDE 28 mmol/L (21-32); CHLORIDE 98 mmol/L (98-107); GLUCOSE 192 mg/dl (70-99); SODIUM 134 mmol/L (136-145)
[2017-02-18 11:23] LABS: ALKALINE PHOSPHATASE 221 U/L (45-117); AST/SGOT 50 U/L (15-37)
--- NOTE | 2017-02-18 11:44 | DIAGNOSTIC IMAGING REPORT ---
CT SCAN OF THE ABDOMEN AND PELVIS WITHOUT CONTRAST CLINICAL HISTORY: Generalized abdominal pain. Fever, sepsis. COMPARISON STUDY: No previous studies for comparison. TECHNIQUE: CT scan of the abdomen and pelvis was performed from the lung bases to the proximal femurs. Images are reviewed in the axial, sagittal, and coronal planes. IV contrast was not administered for this examination. A dose lowering technique was utilized adhering to the principles of ALARA. CT DOSE: 369.56 mGy.cm FINDINGS: Lower chest: There is a moderate pericardial effusion. There are small bilateral pleural effusions. There are bibasal atelectatic changes. There is a small amount of air within the right atrium, likely iatrogenic Liver: The unenhanced liver is normal in size, contour, and attenuation. There is no intrahepatic biliary ductal dilatation. Gallbladder: There is a large noncalcified filling defect within the gallbladder consistent with a gallstone or large sludge ball. Spleen: Normal in size and attenuation. Pancreas: Unremarkable. Adrenal glands: Unremarkable. Kidneys: No renal, ureteral, or bladder calculi are visualized. Bowel: There are no transition zones to indicate bowel obstruction. The appendix appears normal as visualized. There is no acute diverticulitis. Peritoneum: There is no intraperitoneal free air or abdominal ascites. There is minimal increased density of intraperitoneal fat. Vasculature: The abdominal aorta is normal in course and caliber. Adenopathy: None. Pelvic viscera: There is mild bladder wall thickening. The prostate is prominent. Skeletal structures: No destructive osseous lesions are seen. IMPRESSION: 1. No evidence of bowel obstruction. No evidence of free air 2. No renal, ureteral, or bladder calculi identified 3. Large noncalcified gallstone versus sludge ball 4. Small bilateral pleural effusions 5. Moderate pericardial effusion 6. No evidence of acute appendicitis. No evidence of acute diverticulitis. Electronically signed by: Hunter Mohan M.D. 02/18/2017 11:43 AM Dictated Date/Time: 02/18/2017 11:38 AM
[2017-02-18] MEDS ORDERED: ONDANSETRON INJ 8 MG in DEXTROSE 5% 50ML 50 ML IV PRN (13:30)
[2017-02-18 13:44] VITALS: O2SAT 100; Ht 177.8 cm; Wt 86.3 kg
[2017-02-18] MEDS ORDERED: ACETAMINOPHEN 325 MG TAB PO PRN (13:45)
--- NOTE | 2017-02-18 14:40 | EMERGENCY ROOM VISIT NOTE ---
History Report prepared by Jamel: Meghan Boogie Under the Supervision of: Dr. Jaya Herrera D.O. First contact with patient: 10:29 Chief Complaint: TACHYCARDIA Stated Complaint: NAUSEA, FAST HEARTBEAT History of Present Illness The patient is a 61 year old male who presents to the Emergency Room with complaints of constant tachycardia that started 2 hours ago, around 0830. The patient is also experiencing nausea, abdominal bloating, and abdominal cramping which both started 4 days ago. The patient's states that he has not eaten much over the last 4 days. He denies melena and hematochezia. The patient was evaluated by his PCP, Dr. Torres, this morning and he recommended coming into the ED for further evaluation. The patient's states that he experienced an episode of diarrhea while he was at his PCP's office today and he experienced 1 episode yesterday. The patient is also experiencing neck stiffness and pain that started this morning when he woke up. His adds that he is also experiencing back pain which is new for him. The patient had his mitral valve repaired in November. The patient's states that the surgery was successful but the patient has been experiencing intermittent tachycardia since then. The patient was evaluated in the ED on December 18 for similar symptoms. The patient was cardioverted with adenosine at that time. The patient's states that the patient was admitted after that episode of tachycardia. The patient's adds that the patient experienced a tick bite 1 month ago. She states that he never had a rash following the tick bite. Source of History: patient Onset: 2 hours ago, around 0830 Position: chest Quality: other (tachycardia) Timing: constant Associated Symptoms: + neck pain (and stiffness), + nausea, + abdominal pain (cramping), + back pain, + diarrhea, No melena, No hematochezia Note: abdominal bloating Review of Systems See HPI for pertinent positives & negatives. A total of 10 systems reviewed and were otherwise negative. Past Medical & Surgical Medical Problems: (1) No Known Active Medical Problems (2) SVT (supraventricular tachycardia) (3) SVT, DEHYD,GASTROENTERITIS (4) SVT, POST MITRAL VALVE PROSTHESIS Surgical Problems: (1) H/O cardiac catheterization (2) History of mitral valve repair Family History Patient reports no known family medical history. Social History Smoking Status: Never Smoker Marital Status: Occupation Status: employed Current/Historical Medications Scheduled Aspirin (Aspirin Ec), 81 MG PO DAILY Metoprolol Tartrate (Metoprolol Tartrate), 50 MG PO BID Allergies Coded Allergies: No Known Allergies (Verified , 12/13/15) Physical Exam Vital Signs Date Time Temp Pulse Resp B/P (MAP) Pulse Ox O2 Delivery O2 Flow Rate FiO2 02/18/17 13:44 100 Nasal Cannula 2.0 02/18/17 13:23 88 02/18/17 13:09 88 19 98/61 100 Room Air 02/18/17 12:18 91 0 100 02/18/17 12:16 90/66 02/18/17 12:06 98/68 02/18/17 12:01 92/69 02/18/17 11:56 98/68 02/18/17 11:51 97/73 02/18/17 11:48 88 15 100 02/18/17 11:46 96/66 02/18/17 11:41 102/72 02/18/17 11:39 101/76 02/18/17 11:21 101/67 02/18/17 11:18 88 21 100 02/18/17 11:16 98/70 02/18/17 11:11 97/72 02/18/17 11:06 95/69 02/18/17 11:01 102/74 02/18/17 10:58 96 Nasal Cannula 2.0 02/18/17 10:56 103/62 02/18/17 10:54 103/69 02/18/17 10:51 95/76 02/18/17 10:48 91 33 86 02/18/17 10:47 106/73 02/18/17 10:46 101/70 02/18/17 10:44 77 02/18/17 10:42 85/65 02/18/17 10:36 84/68 02/18/17 10:35 85/57 02/18/17 10:33 175 76/66 02/18/17 10:32 76/66 02/18/17 10:27 85/64 02/18/17 10:27 175 02/18/17 10:25 36.5 174 22 85/64 94 Room Air Physical Exam CONSTITUTIONAL/VITAL SIGNS: Reviewed / noted above. GENERAL: Non-toxic in appearance. Pale. Ashen. Ill-appearing. INTEGUMENTARY: Warm, dry, and [place]. HEAD: Normocephalic. EYES: without scleral icterus or trauma. ENT/OROPHARYNX: clear and moist. LYMPHADENOPATHY/NECK: Is supple without lymphadenopathy or meningismus. RESPIRATORY: Lungs clear and equal. CARDIOVASCULAR: Tachycardic rate and rhythm. GI/ABDOMEN: Soft. Mild diffuse abdominal discomfort. No organomegaly or pulsatile mass. No rebound or guarding. Normal bowel sounds. EXTREMITIES: Warm and well perfused. BACK: No CVA tenderness. NEUROLOGICAL: Intact without focal deficits. PSYCHIATRIC: normal affect. MUSCULOSKELETAL: Normally developed with good muscle tone. Medical Decision & Procedures ER Provider Diagnostic Interpretation: Radiology results as stated below per my review and radiologist interpretation: CHEST ONE VIEW PORTABLE FINDINGS: No pneumothorax. Trace left pleural effusion. Left basilar linear densities have progressed. The heart is mildly enlarged. This is increased in size. Poststernotomy changes and a mitral valve ring are again noted. The right lung is clear. IMPRESSION: Trace left pleural effusion and left basilar densities have progressed. This may represent atelectasis or pneumonia. Mild cardiomegaly has also increased in size. Electronically signed by: Walter Ellington M.D. 02/18/2017 11:03 AM Dictated Date/Time: 02/18/2017 11:[address] SCAN OF THE ABDOMEN AND PELVIS WITHOUT CONTRAST FINDINGS: Lower chest: There is a moderate pericardial effusion. There are small bilateral pleural effusions. There are bibasal atelectatic changes. There is a small amount of air within the right atrium, likely iatrogenic Liver: The unenhanced liver is normal in size, contour, and attenuation. There is no intrahepatic biliary ductal dilatation. Gallbladder: There is a large noncalcified filling defect within the gallbladder consistent with a gallstone or large sludge ball. Spleen: Normal in size and attenuation. Pancreas: Unremarkable. Adrenal glands: Unremarkable. Kidneys: No renal, ureteral, or bladder calculi are visualized. Bowel: There are no transition zones to indicate bowel obstruction. The appendix appears normal as visualized. There is no acute diverticulitis. Peritoneum: There is no intraperitoneal free air or abdominal ascites. There is minimal increased density of intraperitoneal fat. Vasculature: The abdominal aorta is normal in course and caliber. Adenopathy: None. Pelvic viscera: There is mild bladder wall thickening. The prostate is prominent. Skeletal structures: No destructive osseous lesions are seen. IMPRESSION: 1. No evidence of bowel obstruction. No evidence of free air 2. No renal, ureteral, or bladder calculi identified 3. Large noncalcified gallstone versus sludge ball 4. Small bilateral pleural effusions 5. Moderate pericardial effusion 6. No evidence of acute appendicitis. No evidence of acute diverticulitis. Electronically signed by: Hunter Mohan M.D. 02/18/2017 11:43 AM Dictated Date/Time: 02/18/2017 11:38 AM Laboratory Results 02/18/17 10:27 Red Blood Count 4.98, Mean Corpuscular Volume 85.9, Mean Corpuscular Hemoglobin 28.5, Mean Corpuscular Hemoglobin Concent 33.2, Mean Platelet Volume 10.9, Neutrophils (%) (Auto) 81.7, Lymphocytes (%) (Auto) 9.8, Monocytes (%) (Auto) 8.0, Eosinophils (%) (Auto) 0.1, Basophils (%) (Auto) 0.1, Neutrophils # (Auto) 9.78, Lymphocytes # (Auto) 1.17, Monocytes # (Auto) 0.96, Eosinophils # (Auto) 0.01, Basophils # (Auto) 0.01 02/18/17 10:27 Test 02/18/17 10:27 White Blood Count 11.97 K/uL (4.8-10.8) Red Blood Count 4.98 M/uL (4.7-6.1) Hemoglobin 14.2 g/dL (14.0-18.0) Hematocrit 42.8 % (42-52) Mean Corpuscular Volume 85.9 fL (80-100) Mean Corpuscular Hemoglobin 28.5 pg (25-34) Mean Corpuscular Hemoglobin Concent 33.2 g/dl (32-36) Platelet Count 198 K/uL (130-400) Mean Platelet Volume 10.9 fL (7.4-10.4) Neutrophils (%) (Auto) 81.7 % Lymphocytes (%) (Auto) 9.8 % Monocytes (%) (Auto) 8.0 % Eosinophils (%) (Auto) 0.1 % Basophils (%) (Auto) 0.1 % Neutrophils # (Auto) 9.78 K/uL (1.4-6.5) Lymphocytes # (Auto) 1.17 K/uL (1.2-3.4) Monocytes # (Auto) 0.96 K/uL (0.11-0.59) Eosinophils # (Auto) 0.01 K/uL (0-0.5) Basophils # (Auto) 0.01 K/uL (0-0.2) RDW Standard Deviation 48.2 fL (36.4-46.3) RDW Coefficient of Variation 15.2 % (11.5-14.5) Immature Granulocyte % (Auto) 0.3 % Immature Granulocyte # (Auto) 0.04 K/uL (0.00-0.02) Prothrombin Time 11.9 SECONDS (9.0-12.0) Prothromb Time International Ratio 1.1 (0.9-1.1) Activated Partial Thromboplast Time 27.9 SECONDS (21.0-31.0) Partial Thromboplastin Ratio 1.1 Anion Gap 8.0 mmol/L (3-11) Est Creatinine Clear Calc Drug Dose 41.1 ml/min Estimated GFR () 42.5 Estimated GFR (Non- 36.7 BUN/Creatinine Ratio 14.4 (10-20) Calcium Level 8.7 mg/dl (8.5-10.1) Total Bilirubin 1.4 mg/dl (0.2-1) Direct Bilirubin 0.7 mg/dl (0-0.2) Aspartate Amino Transf (AST/SGOT) 50 U/L (15-37) Alanine Aminotransferase (ALT/SGPT) 57 U/L (12-78) Alkaline Phosphatase 221 U/L (45-117) Total Creatine Kinase 44 U/L (39-308) Creatine Kinase MB < 0.5 ng/ml (0.5-3.6) Creatine Kinase MB Ratio (0-3.0) Troponin I < 0.015 ng/ml (0-0.045) Total Protein 6.7 gm/dl (6.4-8.2) Albumin 2.9 gm/dl (3.4-5.0) Lipase 128 U/L (73-393) Thyroid Stimulating Hormone (TSH) 4.260 uIu/ml (0.300-4.500) Laboratory results as stated above per my review. Medications Administered Medications (Trade) Dose Ordered Sig/Krystal Route Start Time Stop Time Status Last Admin Dose Admin Adenosine (Adenosine IV) 3 mg STK-MED ONCE .ROUTE 02/18/17 10:35 02/18/17 10:36 DC 02/18/17 10:40 3 MG Adenosine (Adenosine IV) 6 mg NOW STAT IV 02/18/17 10:33 02/18/17 10:36 DC 02/18/17 10:43 6 MG ECG Indication: tachycardia Rate (beats per minute): 175 Rhythm: other (wide complex tachycardia) Findings: LBBB Comparison ECG Date: 12/18/2016 Change: Tachycardia is similar to 12/18/2016 Second EKG on 02/18/2017 revealed SVT, rate of 167, no acute ischemic changes, no ectopy Third EKG on 02/18/2017 revealed a normal sinus rhythm, rate of 91, no acute ischemic changes, no ectopy ED Course 1029: Previous medical records were reviewed. The patient was evaluated in room A9. A complete history and physical examination was performed. 1033: Ordered Adenosine 6 mg IV 1035: Ordered Adenosine 3 mg IV 1045: The patient's heart rate has improved with the adenosine. 1248: I reassessed and updated the patient. 1319: Discussed the patient's case with Dr. Torres. The patient will be evaluated for further treatment and disposition. 1331: On reevaluation, the patient is resting comfortably. I discussed the results and findings with the patient and his . They verbalized agreement of the treatment plan. The patient will be evaluated for further management and care. Medical Decision Differentials include: Acute coronary syndrome, myocardial infarction, CVA, TIA , anemia, infection, pneumonia, UTI, pyelonephritis, poor nutrition, dehydration , electrolyte disturbance, and hypoglycemia. This is a 61-year-old male who presents to the ED with a chief complaint of SVT. The patient was seen by Dr. Burt prior to coming to the emergency department. The patient presented there with a chief complaint of nausea as well as some decreased appetite, bloating and abdominal discomfort over the past several days. The patient was found to have abnormal vital signs and tachycardia and sent here for evaluation. His symptoms started around 8:30 AM. The patient does have history of mitral valve repair December 18 at [facility]. The patient is rather ill-appearing. He is ashen and pale. His heart rate is elevated around 170. His initial twelve-lead EKG showed a wide complex tachycardia. This was similar to a previous SVT episode with a wide complex tachycardia that shows a left bundle branch block. The patient was initially given 6 mg of IV adenosine and he developed a narrow complex SVT. He was then given 12 mg of IV adenosine that broke the block and he went into a normal sinus rhythm without acute ischemic changes. The patient has a chest x -ray that suggests a left pleural effusion and possible density that could be related to atelectasis or pneumonia. Slight cough. The patient's abdominal CT scan reveals sludge ball versus a noncalcified gallstone. This could be related to the patient's recent symptoms that he has had. Troponin was negative. TSH was normal. CBC reveals a slight elevation of the white blood cell count at 11.97. The patient's creatinine today is 1.9. It was 1.1 on December 20. BUN is 27. Patient seems to be a little dehydrated. This is consistent with his history as well. He was given 3 L of normal saline IV. His blood pressure was initially hypotensive with blood pressures as low as 70 systolic. After he was converted into a normal sinus rhythm with adenosine, he had blood pressures in the low 100s to low to mid 90s. He remained in the 90s during his stay. His symptoms improved some. The patient is being admitted. He was given IV Zofran as well. Medication Reconcilliation Current Medication List: was personally reviewed by me Blood Pressure Screening Patient's blood pressure: Low blood pressure Consults Time Called: 1244 Consulting Physician: Dr. Torres [facility] Returned Call: [phone] Discussed the patient's case with Dr. Torres. The patient will be evaluated for further treatment and disposition. Impression Primary Impression: SVT (supraventricular tachycardia) Additional Impressions: Hypotension Biliary colic Dehydration Renal insufficiency Scribe Attestation The scribe's documentation has been prepared under my direction and personally reviewed by me in its entirety. I confirm that the note above accurately reflects all work, treatment, procedures, and medical decision making performed by me. Departure Information Dispostion Other (Being Evaluated by Dr. Torres [facility]) Referrals Parish Patel M.D. (PCP) Patient Instructions My [facility] Problem Qualifiers
[2017-02-18 15:30] VITALS: BP 107/69; PULSE 87; TEMP 36.5; O2SAT 98
[2017-02-18] MEDS: SODIUM CHLORIDE 0.9% 1000ML 1,000 ML IV SCH ×2 (15:39→21:44)
[2017-02-18 16:00] VITALS: O2SAT 98
--- NOTE | 2017-02-18 18:23 | Cardiology Consultation ---
Cardiology Consultation Date of Consultation: Feb 18, 2017. Requesting Physician: Carmel Reason for Consultation: SVT History of Present Illness Patient is a 61-year-old gentleman with a history of mitral valve disease status post repair and SVT. He states that for several days he has been feeling ill. This illness involves a general sense of being unwell as well as some abdominal complaints. This includes bloating and diarrhea. This morning the patient had an element of tachycardia and associated dizziness. Based on the persistent nature of his symptoms and overall worsening clinical course he presented to his primary care physician who discovered a rapid heart rate and relative hypotension. Patient was subsequently referred to [facility] where he was discovered to have an SVT. Adenosine was administered with resolution of the arrhythmia and improvement in hemodynamics. Patient was subsequent minute for observation and evaluation of his abdominal complaints. He states that for several days he has been slightly diaphoretic. He feels alternately cold and hot but did not have any objective fevers. He has had an element of anorexia. He denies overt vomiting. He did have some diarrhea. He has not noticed any melena or hematemesis. He did not report symptoms of chest discomfort. He does however have occasional twinges in the sternum with certain movements since his surgery. These are not changed recently. He denies any difficulty with breathing. He denied any overt lightheadedness with the exception of the episode associated with tachycardia. He has not actually had syncope. He has had some very minor episodes of tachycardia since his admission to the hospital at the end of November. The seem to respond to vagal maneuvers. He did have 1 evening where he had 2 fairly extended episodes that eventually resolved without coming to the hospital. Prior to this recent illness he claims to have been feeling well. He has not engaged in significant physical activity but is able to perform routine activity without symptoms or limitation. In fact, he states he has been feeling so well he was about to call his employer to return to work earlier than expected.. Past Medical/Surgical History MItral regurgitation s/p repair at [facility] November 2016 Coronary angiogram performed preoperatively did not demonstrate significant coronary disease SVT Carpal tunnel syndrome Surgical history Mitral valve repair November 2016 Inguinal hernia repair Carpal tunnel surgery Family History Patient reports no known family medical history. No premature coronary disease Social History Smoking Status: Never Smoker History of Alcohol Use: Yes (OCCASSIONALLY A GLASS OF WINE) Review of Systems Constitutional: + see HPI Respiratory: + see HPI Cardiac: + see HPI Abdomen: + see HPI Male : + see HPI Neurologic: + see HPI Heme: + see HPI Endo: + see HPI Skin: + see HPI All Other Systems: Reviewed and Negative Allergies Coded Allergies: No Known Allergies (Verified , 12/13/15) Medications Current Inpatient Medications Medications (Trade) Dose Ordered Sig/Krystal Route Start Time Stop Time Status Last Admin Dose Admin Ioversol (Optiray 320) 100 ml UD PRN IV 02/18/17 11:00 02/22/17 10:59 Sodium Chloride 1,000 ml @ 150 mls/hr Q6H40M IV 02/18/17 13:30 03/20/17 13:29 02/18/17 15:39 150 MLS/HR Metoprolol Tartrate (Lopressor Tab) 50 mg BID PO 02/18/17 21:00 03/20/17 20:59 Ondansetron HCl 8 mg/Dextrose 54 ml @ 200 mls/hr Q4H PRN IV 02/18/17 13:30 03/20/17 13:29 Acetaminophen (Tylenol Tab) 650 mg Q4H PRN PO 02/18/17 13:45 03/20/17 13:44 Physical Exam Vital Signs Past 12 Hours Date Time Temp Pulse Resp B/P (MAP) Pulse Ox O2 Delivery O2 Flow Rate FiO2 02/18/17 16:00 98 Nasal Cannula 2.0 02/18/17 15:30 36.5 87 18 107/69 (82) 98 Nasal Cannula 2.0 02/18/17 14:31 91/67 02/18/17 14:23 89 15 100 02/18/17 14:16 109/70 02/18/17 14:01 97/67 02/18/17 13:53 86 18 100 02/18/17 13:46 96/73 02/18/17 13:44 100 Nasal Cannula 2.0 02/18/17 13:31 98/63 02/18/17 13:23 87 21 100 02/18/17 13:23 88 02/18/17 13:16 96/67 02/18/17 13:09 88 19 98/61 100 Room Air 02/18/17 13:01 98/61 02/18/17 12:53 89 15 100 02/18/17 12:46 90/66 02/18/17 12:31 92/67 02/18/17 12:23 90 17 100 02/18/17 12:18 91 0 100 02/18/17 12:16 90/66 02/18/17 12:06 98/68 02/18/17 12:01 92/69 02/18/17 11:56 98/68 02/18/17 11:51 97/73 02/18/17 11:48 88 15 100 02/18/17 11:46 96/66 02/18/17 11:41 102/72 02/18/17 11:39 101/76 02/18/17 11:21 101/67 02/18/17 11:18 88 21 100 02/18/17 11:16 98/70 02/18/17 11:11 97/72 02/18/17 11:06 95/69 02/18/17 11:01 102/74 02/18/17 10:58 96 Nasal Cannula 2.0 02/18/17 10:56 103/62 02/18/17 10:54 103/69 02/18/17 10:51 95/76 02/18/17 10:48 91 33 86 02/18/17 10:47 106/73 02/18/17 10:46 101/70 02/18/17 10:44 77 02/18/17 10:42 85/65 02/18/17 10:36 84/68 02/18/17 10:35 85/57 02/18/17 10:33 175 76/66 02/18/17 10:32 76/66 02/18/17 10:27 85/64 02/18/17 10:27 175 02/18/17 10:25 36.5 174 22 85/64 94 Room Air The patient is alert and oriented. Mood and affect appeared normal. He answered all questions appropriately. He did appear slightly ill. HEENT: Pupils are equal and reactive to light and accommodation. Extraocular movements are intact. The sclerae are anicteric. Neuro: Cranial nerves intact Neck: Patient's neck is supple. He has palpable carotid pulses bilaterally without bruits on auscultation. Jugular venous distention measured approximately 5 centimeters of water. The thyroid is not enlarged. Lungs: Clear to auscultation bilaterally. He has good air movement without use of accessory muscles. No rales wheezes or rhonchi. Cardiac: Heart demonstrates a regular rate and rhythm. Normal S1 and S2. No murmurs on examination. Pulses: The patient has palpable radial pulses bilaterally that are equal in intensity Extremities: There was no evidence of hypoperfusion. There is no cyanosis or clubbing. There is no edema. Skin: I did not appreciate any rashes on examination today. Data Laboratory Results: Last 24 Hours Test 02/18/17 10:27 White Blood Count 11.97 K/uL Red Blood Count 4.98 M/uL Hemoglobin 14.2 g/dL Hematocrit 42.8 % Mean Corpuscular Volume 85.9 fL Mean Corpuscular Hemoglobin 28.5 pg Mean Corpuscular Hemoglobin Concent 33.2 g/dl Platelet Count 198 K/uL Mean Platelet Volume 10.9 fL Neutrophils (%) (Auto) 81.7 % Lymphocytes (%) (Auto) 9.8 % Monocytes (%) (Auto) 8.0 % Eosinophils (%) (Auto) 0.1 % Basophils (%) (Auto) 0.1 % Neutrophils # (Auto) 9.78 K/uL Lymphocytes # (Auto) 1.17 K/uL Monocytes # (Auto) 0.96 K/uL Eosinophils # (Auto) 0.01 K/uL Basophils # (Auto) 0.01 K/uL RDW Standard Deviation 48.2 fL RDW Coefficient of Variation 15.2 % Immature Granulocyte % (Auto) 0.3 % Immature Granulocyte # (Auto) 0.04 K/uL Prothrombin Time 11.9 SECONDS Prothromb Time International Ratio 1.1 Activated Partial Thromboplast Time 27.9 SECONDS Partial Thromboplastin Ratio 1.1 Sodium Level 134 mmol/L Potassium Level 4.0 mmol/L Chloride Level 98 mmol/L Carbon Dioxide Level 28 mmol/L Anion Gap 8.0 mmol/L Blood Urea Nitrogen 27 mg/dl Creatinine 1.90 mg/dl Est Creatinine Clear Calc Drug Dose 41.1 ml/min Estimated GFR () 42.5 Estimated GFR (Non- 36.7 BUN/Creatinine Ratio 14.4 Random Glucose 192 mg/dl Calcium Level 8.7 mg/dl Total Bilirubin 1.4 mg/dl Direct Bilirubin 0.7 mg/dl Aspartate Amino Transf (AST/SGOT) 50 U/L Alanine Aminotransferase (ALT/SGPT) 57 U/L Alkaline Phosphatase 221 U/L Total Creatine Kinase 44 U/L Creatine Kinase MB < 0.5 ng/ml Creatine Kinase MB Ratio Troponin I < 0.015 ng/ml Total Protein 6.7 gm/dl Albumin 2.9 gm/dl Lipase 128 U/L Thyroid Stimulating Hormone (TSH) 4.260 uIu/ml Lyme Disease IgM Antibody EQUIVOCAL Imaging: CT scan demonstrating moderate pericardial effusion EKG:Tachycardia (initially wide complex, LBBB) then clear SVT Telemetry reviewed: Sinus rhythm Assessment & Plan SVT: Patient has a longstanding history of SVT. The presenting arrhythmia was wide complex. This was a classic left bundle branch block pattern and transitioned to a narrow complex rhythm at the same rate. The rhythm itself terminated with adenosine suggesting this was an SVT with aberrancy. He is on metoprolol. Unclear whether metoprolol as having any significant effect. We did once again have a discussion regarding the options for treatment to include no treatment, continue metoprolol, switch to a calcium channel jennifer or catheter based therapy. Patient was considering his options and did not make a decision at the time of this interview. It is very possible that an element of dehydration and viral illness precipitated the episode yesterday. He certainly had element of hemodynamic instability associated with rapid heart rate. I suspect this was made worse by an element of dehydration. Pericardial effusion: Reportedly moderate. Present during last admission in November. Will repeat echocardiogram to compared size and location. Mitral valve disease: S/P successful repair. No murmur on exam. No regurgitation on echocardiogram in November
[2017-02-18 18:55] VITALS: BP 100/76; PULSE 88; TEMP 37.1; O2SAT 93
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
[2017-02-18 21:21] VITALS: BP 115/71; PULSE 91; O2SAT 94
[2017-02-18] MEDS: METOPROLOL TARTRATE 50 MG TAB PO SCH (21:25)
--- NOTE | 2017-02-18 22:47 | DIAGNOSTIC IMAGING REPORT ---
ULTRASOUND RIGHT UPPER QUADRANT ABDOMEN CLINICAL HISTORY: Right upper quadrant abdominal pain. COMPARISON STUDY: Abdominal CT dated 02/18/2017. TECHNIQUE: Real-time, grayscale, and color flow sonography of the right upper quadrant of the abdomen was performed. Images are reviewed in the transverse and longitudinal planes. FINDINGS: Liver: The liver is normal in size and heterogeneous and echotexture. There is no intrahepatic biliary ductal dilatation. The main portal vein is patent. Gallbladder: Biliary sludge is identified. No shadowing gallstones are seen. The gallbladder wall is thickened, measuring up to 6 mm. There is trace prior cholecystectomy. A sonographic Hudson's sign is reportedly absent. The common bile duct measures up to 0.3 cm in diameter. Pancreas: Visualized portions of the pancreatic head and body are normal in appearance. The splenic vein is patent. Right kidney: Survey images of the right kidney demonstrate cortical atrophy. There is no hydronephrosis. A 1.1 cm renal cyst is noted. Ascites: None. Pleural spaces: There is a small right pleural effusion. IMPRESSION: 1. Biliary sludge is identified. The gallbladder wall is thickened and edematous and there is trace pericholecystic fluid. No shadowing gallstones are identified and a sonographic Hudson's sign is reportedly absent. Findings are equivocal for acute cholecystitis which is not excluded. Clinical correlation will be required. If there is clinical concern for acute cholecystitis then a nuclear hepatobiliary scan could be considered to assess for patency of the cystic duct. 2. Small right pleural effusion. Electronically signed by: Henok Pisano M.D. 02/18/2017 10:46 PM Dictated Date/Time: 02/18/2017 10:43 PM
[2017-02-18 22:55] VITALS: BP 97/54; PULSE 78; TEMP 37.7; O2SAT 95
[2017-02-19 03:30] VITALS: BP 109/69; PULSE 80; TEMP 37.3; O2SAT 93
[2017-02-19] MEDS: SODIUM CHLORIDE 0.9% 1000ML 1,000 ML IV SCH ×2 (04:54→16:16)
[2017-02-19 06:44] LABS: BUN/CREATININE RATIO 16.6 (10-20); CALCIUM 8.1 mg/dl (8.5-10.1); CREATININE 1.1 mg/dl (0.60-1.40); POTASSIUM 3.6 mmol/L (3.5-5.1)
[2017-02-19 06:48] LABS: ALB/GLOB RATIO 0.7 (0.9-2)
[2017-02-19 06:50] LABS: COMPLETE YES; EOS % 0.4 %; HEMATOCRIT 34.6 % (42-52); IG% 0.2 %; LYMPH % 20.6 %; LYMPH ABS # 1.16 K/uL (1.2-3.4); MEAN CELL VOLUME 85.2 fL (80-100); MEAN CORPUSCULAR HEMOGLOBIN 26.8 pg (25-34); MEAN CORPUSCULAR HGB CONC 31.5 g/dl (32-36); MEAN PLATELET VOLUME 9.3 fL (7.4-10.4); MONO % 10.3 %; NEUT % 68.5 %; PLATELET COUNT 152 K/uL (130-400); RED BLOOD COUNT 4.06 M/uL (4.7-6.1); WHITE BLOOD COUNT 5.63 K/uL (4.8-10.8)
[2017-02-19 07:22] VITALS: BP 118/73; PULSE 86; TEMP 36.9; O2SAT 94
[2017-02-19] MEDS: METOPROLOL TARTRATE 50 MG TAB PO SCH ×2 (08:33→20:34)
--- NOTE | 2017-02-19 10:56 | ECHOCARDIOGRAM REPORT ---
*NOTICE TO RECEIVING DEMOCRAT AGENCY This information is strictly Confidential and protected under [place] law. [place] law prohibits you from making any further disclosure of this information unless further disclosure is expressly permitted by the written consent of the person to whom it pertains or is authorized by law. A general authorization for the release of medical or other information is not sufficient for this purpose. Hospital accepts no responsibility if the information is made available to any other person, INCLUDING THE PATIENT. Interpretation Summary * Name: ANA JOHNSON Study Date: 02/19/2017 06:41 AM BP: 109/69 mmHg * Patient Location: C.2T\S\S230\S\1 HR: 83 * : 1955 (M/d/yyyy) Gender: Male Height: 70 in * Age: 61 yrs Ethnicity: [place] Weight: 175 lb * Ordering Physician: Mason Max * Referring Physician: Parish Patel * Performed By: Juancarlos Moore RCS * * Reason For Study: Pericardial Effusion * BSA: 2.0 m2 * -- Conclusions -- * There is mild concentric left ventricular hypertrophy. * Left ventricular systolic function is low normal. * Moderate size pericardial effusion. * Compared to an echocardiogram from 12/19/2016, the pericardial effiusion is larger. No echocardiographic evidence of cardiac tamponade. Procedure Details * Limited views were obtained. Left Ventricle * The left ventricle is grossly normal size. * There is mild concentric left ventricular hypertrophy. * Left ventricular systolic function is low normal. * Septal motion is consistent with post-operative state. Right Ventricle * The right ventricle is normal in size and function. Pericardium/Pleural * Moderate size pericardial effusion.
[2017-02-19 12:06] VITALS: BP 116/72; PULSE 83; TEMP 37; O2SAT 94
[2017-02-19 15:23] VITALS: BP 123/76; PULSE 91; TEMP 37.1; O2SAT 95
--- NOTE | 2017-02-19 15:55 | Cardiology Follow-Up ---
Subjective Date of Service: Feb 19, 2017. Pt evaluation today including: conversation w/ patient, physical exam, chart review, lab review, review of studies, conversation w/ attending History of Present Illness The patient is feeling slightly better today. He has good appetite and actually 2 breakfast trays. He is abdominal pain appears to have improved. He denies any sense of breathing difficulty. He has not had any dizziness or lightheadedness. He denies any sense of palpitation. He has no chest discomfort either at rest or with deep inspiration. Social History Smoking Status: Never Smoker History of Alcohol Use: Yes (OCCASSIONALLY A GLASS OF WINE) Review of Systems Respiratory: + see HPI Cardiac: + see HPI Objective Vital Signs Past 12 Hours Date Time Temp Pulse Resp B/P (MAP) Pulse Ox O2 Delivery O2 Flow Rate FiO2 02/19/17 15:23 37.1 91 18 123/76 (92) 95 Room Air 02/19/17 12:06 37.0 83 20 116/72 (87) 94 Room Air 02/19/17 12:03 Room Air 02/19/17 08:05 Room Air 02/19/17 07:22 36.9 86 20 118/73 (88) 94 02/19/17 04:00 Room Air Last Recorded Weight-Kilograms: 83.100 Intake & Output 8-Hour Column 02/19/17 02/20/17 02/20/17 16:00 00:00 08:00 Intake Total 1720 ml Output Total 450 ml Balance 1270 ml 24-Hour Column 02/20/17 08:00 Intake Total 1720 ml Output Total 450 ml Balance 1270 ml Physical Exam The patient is alert and oriented. Mood and affect appeared normal. He answered all questions appropriately. He did appear slightly ill. HEENT: Pupils are equal and reactive to light and accommodation. Extraocular movements are intact. The sclerae are anicteric. Neuro: Cranial nerves intact Neck: Patient's neck is supple. He has palpable carotid pulses bilaterally without bruits on auscultation. Jugular venous distention measured approximately 5 centimeters of water. The thyroid is not enlarged. Lungs: Clear to auscultation bilaterally. He has good air movement without use of accessory muscles. No rales wheezes or rhonchi. Cardiac: Heart demonstrates a regular rate and rhythm. Normal S1 and S2. No murmurs on examination. Pulses: The patient has palpable radial pulses bilaterally that are equal in intensity Extremities: There was no evidence of hypoperfusion. There is no cyanosis or clubbing. There is no edema. Skin: I did not appreciate any rashes on examination today. Blood pressure revealed normal pulses paradoxus at 10 millimeters of mercury Data Laboratory Results: Last 24 Hours Test 02/19/17 05:58 White Blood Count 5.63 K/uL Red Blood Count 4.06 M/uL Hemoglobin 10.9 g/dL Hematocrit 34.6 % Mean Corpuscular Volume 85.2 fL Mean Corpuscular Hemoglobin 26.8 pg Mean Corpuscular Hemoglobin Concent 31.5 g/dl Platelet Count 152 K/uL Mean Platelet Volume 9.3 fL Neutrophils (%) (Auto) 68.5 % Lymphocytes (%) (Auto) 20.6 % Monocytes (%) (Auto) 10.3 % Eosinophils (%) (Auto) 0.4 % Basophils (%) (Auto) 0.0 % Neutrophils # (Auto) 3.86 K/uL Lymphocytes # (Auto) 1.16 K/uL Monocytes # (Auto) 0.58 K/uL Eosinophils # (Auto) 0.02 K/uL Basophils # (Auto) 0.00 K/uL RDW Standard Deviation 47.7 fL RDW Coefficient of Variation 15.2 % Immature Granulocyte % (Auto) 0.2 % Immature Granulocyte # (Auto) 0.01 K/uL Sodium Level 140 mmol/L Potassium Level 3.6 mmol/L Chloride Level 108 mmol/L Carbon Dioxide Level 24 mmol/L Anion Gap 8.0 mmol/L Blood Urea Nitrogen 18 mg/dl Creatinine 1.10 mg/dl Est Creatinine Clear Calc Drug Dose 71.0 ml/min Estimated GFR () 82.4 Estimated GFR (Non- 71.1 BUN/Creatinine Ratio 16.6 Random Glucose 93 mg/dl Calcium Level 8.1 mg/dl Total Bilirubin 0.5 mg/dl Aspartate Amino Transf (AST/SGOT) 34 U/L Alanine Aminotransferase (ALT/SGPT) 49 U/L Alkaline Phosphatase 168 U/L Total Protein 5.2 gm/dl Albumin 2.2 gm/dl Globulin 3.0 gm/dl Albumin/Globulin Ratio 0.7 Amylase Level 31 U/L Lipase 127 U/L Imaging: Echocardiogram obtained today revealed enlarging pericardial effusion when compared to echocardiogram from November 2016 Telemetry reviewed: No recurrent SVT Assessment and Plan SVT: Possibly worsened by his dehydration and suspected viral illness. Also in the presence of a pericardial effusion that may be some atrial irritation. I would advocate consideration of catheter based therapy for permanent solution to this problem. However, given the presence of the pericardial effusion I would recommend deferring any procedures until this has resolved or is otherwise addressed. It would seem reasonable to continue him on his current medical therapy rather than switching to a different agent as he may be some hemodynamic embarrassment with diltiazem or other calcium channel blockers. Pericardial effusion: This has progressed since November. This has likely been a fairly long and chronic process which has not resulted in any hemodynamic compromise. On examination today the patient did not have any pulsus paradoxus. His blood pressure and pulse have been good. The echocardiogram did not suggest any filling problems to suggest tamponade. As such, I think we have the option of medical therapy to see if perhaps anti-inflammatories would resolve the infusion. I doubt this is related to the patient's surgery directly. This is not likely to be blood in the pericardial space given the remote nature of his surgery. I suspect this is an inflammatory process and may respond to anti-inflammatory therapy. If the patient has progression or certainly if he developed symptoms consistent with hemodynamic compromise and evacuation will be required. I would suggest the following regimen for treatment: Ibuprofen 400 milligrams q.8 hours. Colchicine 0.5 milligrams b.i.d. Mitral valve disease: S/P successful repair. No murmur on exam. No regurgitation on echocardiogram
[2017-02-19 18:50] VITALS: BP 129/77; PULSE 94; TEMP 37.8; O2SAT 94
[2017-02-19] MEDS: IBUPROFEN 200 MG TAB PO SCH (20:34)
--- NOTE | 2017-02-19 22:56 | Progress Note ---
Progress Note Date of Service Feb 19, 2017. Progress Note 61-year-old male admitted with: * recurrent supraventricular tachycardia * Acute gastroenteritis * Dehydration * Status post mitral valve repair * Presyncope * Suspected biliary disease with sludge Patient was admitted. He was started on IV fluid. All his laboratory tests were ordered. He was seen in cardiology consultation by Dr. Max. In the emergency room he was treated with Adenocard and he did convert to a sinus rhythm. His condition has improved. He denied any headache. No dizziness. No earache sore throat or neck pain. No chest pain. No shortness of breath. No abdominal pain. No nausea no vomiting. He is tolerating his diet. His diarrhea has subsided. No pain in his back or extremities. EXAMINATION: * General : Well developed. Well nourished. No distress. * Vital Signs : Blood [id number], pulse 86, respiration 20, temperature 36.9 , oxygen saturation 94% on room air. * Skin : Warm and dry. No rash. * HEENT :No mucosal abnormality is * Neck : Supple. No adenopathy. No thyromegaly. No JVD. Normal carotid pulses. No carotid bruit. * Heart: Regular heart sounds. * Lungs are clear * Abdomen : Soft nontender without any organomegaly or masses. Active bowel sounds. * Extremities: No edema clubbing or cyanosis. No joint or muscle tenderness. LABORATORY TESTS: WBC count 5630, hemoglobin 10.9, hematocrit 34.6, platelet count 152,000. Sodium 140, potassium 3.6, chloride 108, CO2 24, BUN 18, creatinine 1.1, glucose 93, calcium 8.1, total bili 0.5, AST 34, ALT 49, alkaline phosphatase 168, total protein 5.2, albumin 2.2, amylase 31, lipase 127. On admission his Lyme antibodies were equivocal. Western blot is pending. Echocardiogram showed evidence of pericardial effusion which has definitely enlarged since his last echocardiogram during his last admission in November of this year. ASSESSMENT: * recurrent supraventricular tachycardia * Gastroenteritis * Pericardial effusion * Dehydration * Biliary sludge * Status post mitral valve repair * Equivocal Lyme antibodies PLAN: * continue IV fluid * Encouraged to ambulate * Would wait for the results of the Western blot and decide on the need of any treatment * He is tolerating his regular diet * As discussed with Dr. Max because of the pericardial effusion patient was started on ibuprofen 400 mg 3 times a day and colchicine 0.6 mg daily. * The plan at this time is to continue with the anti-inflammatory medication. Repeat his echocardiogram in 2 weeks. Decide on any further treatment or evaluation. Also once his cardiac status is stable we'll request a surgical consultation to evaluate his biliary disease.
[2017-02-19 23:57] VITALS: BP 115/75; PULSE 84; TEMP 37.1; O2SAT 94
[2017-02-20] MEDS: SODIUM CHLORIDE 0.9% 1000ML 1,000 ML IV SCH ×2 (01:11→07:40)
[2017-02-20 04:10] VITALS: BP 113/76; PULSE 81; TEMP 36.7; O2SAT 94
[2017-02-20 05:59] LABS: BASO % 0.2 %; BASO ABS # 0.01 K/uL (0-0.2); COMPLETE YES; EOS % 1.4 %; HEMATOCRIT 37.7 % (42-52); IG% 0.2 %; LYMPH % 27.9 %; LYMPH ABS # 1.23 K/uL (1.2-3.4); MEAN CELL VOLUME 86.1 fL (80-100); MEAN CORPUSCULAR HEMOGLOBIN 26.3 pg (25-34); MEAN CORPUSCULAR HGB CONC 30.5 g/dl (32-36); NEUT % 60.3 %; PLATELET COUNT 184 K/uL (130-400); RED BLOOD COUNT 4.38 M/uL (4.7-6.1); WHITE BLOOD COUNT 4.41 K/uL (4.8-10.8)
[2017-02-20 06:27] LABS: BUN/CREATININE RATIO 17.4 (10-20); CALCIUM 7.8 mg/dl (8.5-10.1); CREATININE 1.1 mg/dl (0.60-1.40)
[2017-02-20 07:11] VITALS: BP 135/85; PULSE 86; TEMP 36.5; O2SAT 97
[2017-02-20] MEDS: METOPROLOL TARTRATE 50 MG TAB PO SCH ×2 (07:41→20:41)
[2017-02-20] MEDS: IBUPROFEN 200 MG TAB PO SCH ×3 (07:41→20:40)
[2017-02-20 08:20] VITALS: O2SAT 97
[2017-02-20] MEDS ORDERED: COLCHICINE 0.6 MG TAB PO SCH (09:00)
--- NOTE | 2017-02-20 10:48 | CONSULTATION REPORT ---
DATE OF CONSULTATION: 02/20/2017 DATE OF CONSULTATION: 02/20/2017 REASON FOR CONSULT: Gallbladder sludge. HISTORY OF PRESENT ILLNESS: The patient is a 61-year-old male admitted [address] Torres after being seen in the office complaining of tachycardia, dizziness, some abdominal discomfort. He was admitted to telemetry for SVT. He has been seen by cardiology and was converted with adenosine in the ED. Evaluation on admission include a CT scan which showed a large noncalcified gallstone versus sludge ball. He went on to have an ultrasound which showed some sludge, some gallbladder wall thickening and trace pericholecystic fluid. He also had mitral valve repair at [facility] on 11/30/2016. He had some generalized abdominal discomfort, had some diarrhea when he was in the office. He has occasional diarrhea at home but does not relate this to any certain foods. He does not have a fatty food intolerance. He has not had any bloating. He had a regular breakfast this morning. He does not have a family history of biliary disease. He denies right upper quadrant pain and nausea. PAST MEDICAL HISTORY: Mitral regurgitation, SVT, carpal tunnel syndrome. PAST SURGICAL HISTORY: Recent mitral valve repair, history of inguinal hernia, carpal tunnel surgery and colonoscopy. No intra-abdominal surgeries. SOCIAL HISTORY: Denies tobacco use. Occasional alcohol use. REVIEW OF SYSTEMS: GENERAL: No fevers or chills. ABDOMEN: As per HPI. He had polyps on colonoscopy. INPATIENT MEDICATIONS: Include colchicine 0.6 mg p.o. b.i.d., Advil 400 mg p.o. t.i.d., Lopressor 50 mg p.o. b.i.d., Tylenol 650 mg every 4 hours as needed, Zofran 8 mg IV as needed. ALLERGIES: NKDA. OBJECTIVE: GENERAL: He appears in no acute distress. VITAL SIGNS: Temperature 36.5, pulse 86, respirations 20, blood pressure 135/85, pulse ox 97% on room air. HEAD, EYES, EARS, NOSE, AND THROAT: Unremarkable. No scleral icterus. HEART: Regular. LUNGS: Clear. ABDOMEN: Soft, nondistended and nontender. SKIN: Normal color, warm and dry. NEUROLOGICAL: Grossly intact. LABORATORY DATA: White count was 11,000 on admission, this morning is 4000. His hemoglobin went from 14.2 and 11.5. Platelets are 184,000. Sodium 145, potassium 4.0, BUN 19, creatinine 1.1. On admission bilirubin was 1.4, yesterday was 0.5. Alkaline phosphatase was 221 and went to 168. AST and ALT have been basically normal at 34 and 49. IMAGING: CT of the abdomen showed a large noncalcified gallstone or sludge ball. The remainder of the abdomen is unremarkable. Ultrasound shows sludge, thickened gallbladder wall and some trace pericholecystic fluid. There was also moderate pericardial effusion. IMPRESSION: Gallbladder sludge. PLAN: His pericardial effusion has increased since November and he was started on ibuprofen and colchicine. In regards to his gallbladder he is not symptomatic, but does have objective findings of cholecystitis, and elevation of LFTs. I will discuss the case and imaging with Dr. Huerta this afternoon. Will check in on him again tomorrow morning. LUIS
--- NOTE | 2017-02-20 11:03 | Cardiology Follow-Up ---
Subjective Date of Service: Feb 20, 2017. Pt evaluation today including: conversation w/ patient, physical exam, chart review, lab review, conversation w/ attending History of Present Illness Overall he seems to be feeling better. I get the impression he is not at 100 percent better, but he denies symptoms of breathing difficulty. His gastrointestinal symptoms have nearly abated entirely. He denies any symptoms of chest discomfort or fullness in the chest. He has been ambulatory around the room without significant dizziness. Social History Smoking Status: Never Smoker History of Alcohol Use: Yes (OCCASSIONALLY A GLASS OF WINE) Review of Systems Respiratory: + see HPI Cardiac: + see HPI Objective Vital Signs Past 12 Hours Date Time Temp Pulse Resp B/P (MAP) Pulse Ox O2 Delivery O2 Flow Rate FiO2 02/20/17 08:20 97 Room Air 02/20/17 07:11 36.5 86 20 135/85 (102) 97 Room Air 02/20/17 04:10 36.7 81 16 113/76 (88) 94 Room Air 02/20/17 04:00 Room Air 02/20/17 00:00 Room Air 02/19/17 23:57 37.1 84 16 115/75 (88) 94 Room Air Last Recorded Weight-Kilograms: 86.000 Intake & Output 8-Hour Column 02/20/17 02/21/17 02/21/17 16:00 00:00 08:00 Output Total 0 ml Balance 0 ml 24-Hour Column 02/21/17 08:00 Output Total 0 ml Balance 0 ml Physical Exam The patient is alert and oriented. Mood and affect appeared normal. He answered all questions appropriately. He did appear slightly ill. HEENT: Pupils are equal and reactive to light and accommodation. Extraocular movements are intact. The sclerae are anicteric. Neuro: Cranial nerves intact Neck: Patient's neck is supple. He has palpable carotid pulses bilaterally without bruits on auscultation. Jugular venous distention measured approximately 5 centimeters of water. The thyroid is not enlarged. Lungs: Clear to auscultation bilaterally. He has good air movement without use of accessory muscles. No rales wheezes or rhonchi. Cardiac: Heart demonstrates a regular rate and rhythm. Normal S1 and S2. No murmurs on examination. Pulses: The patient has palpable radial pulses bilaterally that are equal in intensity Extremities: There was no evidence of hypoperfusion. There is no cyanosis or clubbing. There is no edema. Skin: I did not appreciate any rashes on examination today. Blood pressure revealed normal pulses paradoxus at 10 millimeters of mercury Data Laboratory Results: Last 24 Hours Test 02/20/17 05:23 02/20/17 06:28 White Blood Count 4.41 K/uL Red Blood Count 4.38 M/uL Hemoglobin 11.5 g/dL Hematocrit 37.7 % Mean Corpuscular Volume 86.1 fL Mean Corpuscular Hemoglobin 26.3 pg Mean Corpuscular Hemoglobin Concent 30.5 g/dl Platelet Count 184 K/uL Mean Platelet Volume 10.0 fL Neutrophils (%) (Auto) 60.3 % Lymphocytes (%) (Auto) 27.9 % Monocytes (%) (Auto) 10.0 % Eosinophils (%) (Auto) 1.4 % Basophils (%) (Auto) 0.2 % Neutrophils # (Auto) 2.66 K/uL Lymphocytes # (Auto) 1.23 K/uL Monocytes # (Auto) 0.44 K/uL Eosinophils # (Auto) 0.06 K/uL Basophils # (Auto) 0.01 K/uL RDW Standard Deviation 48.8 fL RDW Coefficient of Variation 15.3 % Immature Granulocyte % (Auto) 0.2 % Immature Granulocyte # (Auto) 0.01 K/uL Sodium Level 145 mmol/L Potassium Level 4.0 mmol/L Chloride Level 112 mmol/L Carbon Dioxide Level 26 mmol/L Anion Gap 7.0 mmol/L Blood Urea Nitrogen 19 mg/dl Creatinine 1.10 mg/dl Est Creatinine Clear Calc Drug Dose 71.0 ml/min Estimated GFR () 82.4 Estimated GFR (Non- 71.1 BUN/Creatinine Ratio 17.4 Random Glucose 99 mg/dl Calcium Level 7.8 mg/dl Amylase Level 43 U/L Lipase 138 U/L Erythrocyte Sedimentation Rate 20 mm/hr C-Reactive Protein 7.47 mg/dl Telemetry did not reveal any additional episodes of SVT Assessment and Plan SVT: At this point continue his beta-jennifer seems reasonable. Ideally he would undergo catheter based therapy at some point for permanent elimination of SVT. This will be deferred until his pericardial effusion has resolved. Pericardial effusion: No overt symptoms currently. Hemodynamic evaluation yesterday did not reveal any compromise from the effusion. We have started anti -inflammatory therapy and will reassess the effusion in 2 weeks provided there are no symptoms in the interim. Mitral valve disease: S/P successful repair. No murmur on exam. No regurgitation on echocardiogram
[2017-02-20 11:18] VITALS: BP 147/93; PULSE 76; TEMP 36.9; O2SAT 97
[2017-02-20 15:12] VITALS: BP 130/84; PULSE 87; TEMP 36.4; O2SAT 99
--- NOTE | 2017-02-20 18:26 | Progress Note ---
Progress Note Date of Service Feb 20, 2017. Progress Note 61-year-old male admitted through the emergency room with multiple problems including: * Recurrent supraventricular tachycardia * Gastroenteritis * Dehydration * Status post mitral valve repair for severe mitral regurgitation Patient was admitted. In the emergency room he received admitted no card and he converted to sinus rhythm. He was started on IV fluid. He was continued on his oral metoprolol tartrate 50 mg twice a day. He was suspected of having biliary disease. A biliary ultrasound was done. He has evidence of biliary sludge. He does have some thickening of the gallbladder wall but there is no evidence of any acute cholecystitis clinically. He is not having any pain in that area. He is not having any fever or any chills or any other associated symptoms. All his liver enzymes have normalized. Amylase and lipase were normal. Patient was seen in cardiology consultation by Dr. Mason Max. An echocardiogram was done. He has evidence of pericardial effusion which is definitely much more pronounced than it was couple months ago. He denied any headache or dizziness or lightheadedness. No chest pain no shortness of breath. No abdominal pain. No nausea no vomiting. His diarrhea has subsided. He is tolerating his diet. He is ambulating. EXAMINATION: Is well-developed. Comfortable. No distress. Vital signs: Blood pressure 135/85, pulse 86, respiration 20, temperature 36.5, oxygen saturation 97% on room air. Skin is warm and dry. No rash. HEENT no evidence of any mucosal abnormality Neck is supple without lymph node or thyroid enlargement. No JVD. Heart regular heart sounds. 1 to 2/6 systolic murmur. Lungs are clear. Abdomen is soft nontender without organomegaly or masses Extremities trace edema. No clubbing or cyanosis. LABORATORY TESTS: WBC count 4410 hemoglobin 11.5, hematocrit 37.7, platelet count 184,000, sedimentation rate 20. Sodium 145, potassium 4.0, chloride 112, CO2 26, BU and 19, creatinine 1.1, glucose 99, calcium 7.8, C-reactive protein 7.47. As previously noted his Lyme antibodies IgM were equivocal. Western blot is pending. ASSESSMENT: * Recurrent supraventricular tachycardia * Gastroenteritis * Dehydration * Pericardial effusion * Biliary disease with sludge and * Status post repair of mitral valve PLAN: * He was already started on colchicine and ibuprofen. * Continuing his other medications unchanged * Discontinued his IV fluid * Encouraged ambulation * We will monitor his condition closely. We will plan on repeat his echocardiogram in 2 weeks. * If he remains stable through the night without any problem I anticipate discharging him tomorrow morning.
[2017-02-20 18:52] VITALS: BP 136/96; PULSE 92; TEMP 36.8; O2SAT 94
[2017-02-20] MEDS: COLCHICINE 0.6 MG TAB PO SCH (20:43)
[2017-02-21 00:13] VITALS: BP 132/88; PULSE 75; TEMP 37; O2SAT 96
[2017-02-21 03:20] VITALS: BP 151/94; PULSE 79; TEMP 36.3; O2SAT 99
--- NOTE | 2017-02-21 04:58 | PROGRESS NOTE ---
DATE: 02/21/2017 Sudhakar is resting comfortably, although it is early in the morning. He stated he really has no abdominal discomfort. He has had some bloating feeling a few days prior to admission but that has pretty much subsided. His last vitals showed a temperature of 37, pulse 75, respiration 18, blood pressure 132/88. Laboratory lundy, his white count yesterday was 4.41, sed rate was 20, and the PRPs including the alkaline phosphatase are trending down. At this point, his abdomen is completely benign. He has no tenderness, no masses. Eventually, I think he will need to address the issue of the gallbladder, but at this time certainly I would not proceed with any surgery. We will discuss the situation with Dr. Torres later.
[2017-02-21 06:33] LABS: BASO % 0.4 %; BASO ABS # 0.02 K/uL (0-0.2); COMPLETE YES; EOS % 3.8 %; HEMATOCRIT 36.6 % (42-52); IG% 0.2 %; LYMPH % 26.8 %; LYMPH ABS # 1.27 K/uL (1.2-3.4); MEAN CELL VOLUME 85.3 fL (80-100); MEAN CORPUSCULAR HEMOGLOBIN 27.3 pg (25-34); MEAN PLATELET VOLUME 9.8 fL (7.4-10.4); MONO % 9.5 %; NEUT % 59.3 %; PLATELET COUNT 192 K/uL (130-400); RED BLOOD COUNT 4.29 M/uL (4.7-6.1); WHITE BLOOD COUNT 4.73 K/uL (4.8-10.8)
[2017-02-21] MEDS ORDERED: CLC6 PO (06:57)
[2017-02-21] MEDS ORDERED: IBUP-1050 PO (06:57)
--- NOTE | 2017-02-21 07:01 | Discharge Instructions ---
Discharge Instructions Date of Service Feb 21, 2017. Admission Reason for Admission: Supraventricular tachycardia Gastroenteritis Dehydration Hypokalemia Pericardial effusion Status post repair of mitral valve Discharge Discharge Diagnosis / Problem: supraventricular tachycardia. Gastroenteritis. Dehydration. Pericardial Discharge Goals Goal(s): Decrease discomfort, Improve function, Increase independence, Improve disease control Activity Recommendations Activity Limitations: resume your previous activity . Instructions / Follow-Up Instructions / Follow-Up Dr Hernandez in 1 week. Please call for appointment Dr. Max in 2 weeks. Please call for appointment Current Hospital Diet Patient's current hospital diet: Regular Diet Discharge Diet Recommended Diet: Regular Diet Pending Studies Studies pending at discharge: yes List of pending studies: Serum protein electrophoresis Western blot for Lyme antibodies Medical Emergencies . Who to Call and When: Medical Emergencies: If at any time you feel your situation is an emergency, please call 911 immediately. . Non-Emergent Contact Non-Emergency issues call your: Primary Care Provider . . "Provider Documentation" section prepared by Parish Hernandez. . VTE Core Measure Inpt VTE Proph given/why not?: Treatment not indicated
[2017-02-21 07:09] VITALS: BP 143/88; PULSE 86; TEMP 36.5; O2SAT 97
[2017-02-21 07:12] LABS: BUN/CREATININE RATIO 16.8 (10-20); CALCIUM 8.1 mg/dl (8.5-10.1); POTASSIUM 3.9 mmol/L (3.5-5.1)
[2017-02-21] MEDS: IBUPROFEN 200 MG TAB PO SCH (08:06)
[2017-02-21] MEDS: COLCHICINE 0.6 MG TAB PO SCH (08:07)
[2017-02-21] MEDS: METOPROLOL TARTRATE 50 MG TAB PO SCH (08:07)
[2017-02-21 08:11] VITALS: BP 151/94; PULSE 79; TEMP 36.3; O2SAT 99
[2017-02-21 16:01] LABS: ALBUMIN 2.3 G/DL (3.8-4.8); GAMMA GLOBULIN 0.4 G/DL (0.8-1.7); TOTAL PROTEIN 4.5 G/DL (6.2-8.3)
--- NOTE | 2017-02-21 21:53 | Progress Note ---
Progress Note Date of Service Feb 21, 2017. Progress Note 61-year-old male admitted with recurrent supraventricular tachycardia with a rate of 170 beats per minute. He also had a gastroenteritis. He was dehydrated. He has a history of repair of a mitral valve. In the emergency room he was treated with IV Adenocard. He converted to a sinus rhythm. For the remainder of his hospitalization he remained in a sinus rhythm. Patient also has documented biliary labs. It was not felt that he has any acute gallbladder disease that required any immediate intervention. He was seen in surgical consultation. He was seen in cardiology consultation by Dr. Max. An echocardiogram was done. He was found to have a significant pericardial effusion. Patient was started on colchicine and ibuprofen. His condition improved. He remained in sinus rhythm. He has no headache or dizziness or lightheadedness. He is ambulating without any problem. Denied any chest pain. No shortness of breath. No cough. No abdominal pain. No nausea no vomiting. No diarrhea. No problem urinating. No pain in his back or extremities. EXAMINATION: GENERAL : Well developed. Well nourished. No acute distress. VITAL SIGNS ; Blood Pressure : 143/88, pulse 86, respiration 20, temperature 36.5, oxygen saturation 97% on room air SKIN : Warm and dry. No rash. HEENT :No evidence of any mucosal abnormality NECK : Supple. No adenopathy. No thyromegaly. No JVD. Normal carotid pulses. No carotid bruit. HEART: Regular heart tones with 2/6 systolic murmur. No rub no gallop. LUNGS: Clear. Normal breath sounds. ABDOMEN: Soft nontender. No organomegaly or masses. Good bowel sounds. BACK: No spine or CVA tenderness. EXTREMITIES : No edema clubbing or cyanosis. No joint or muscle tenderness. Good peripheral pulses. LABORATORY TESTS: Sodium 145, potassium 3.9, chloride 112, CO2 29, BUN 17, creatinine 1.0, glucose 90, calcium 8.1. WBC count 4730, hemoglobin 11.7, hematocrit 36.6, platelet count 192,000. Western blot for his Lyme antibody is still pending She'll protein electrophoresis did not show any evidence of monoclonal gammopathy. ASSESSMENTGENERAL : Well developed. Well nourished. No acute distress. * recurrent supraventricular tachycardia * Gastroenteritis * Dehydration * Pericardial effusion * Status post repair of mitral valve * Biliary sludge PLAN: * overall his condition is stable. * He was discharged home * Followup in the office in one week * Followup with Dr. Max in 2 weeks. The intent is to repeat his echocardiogram to evaluate the pericardial effusion. He was discharged on colchicine and ibuprofen. He was continued on metoprolol tartrate 50 mg twice a day.
[2017-02-25 01:08] LABS: 18KDIGG BAND NONREACTIVE (NONREACTIVE); 23KDIGG BAND NONREACTIVE (NONREACTIVE); 23KDIGM BAND REACTIVE (NONREACTIVE); 28KDIGG BAND NONREACTIVE (NONREACTIVE); 30KDIGG BAND NONREACTIVE (NONREACTIVE); 39KDIGG BAND NONREACTIVE (NONREACTIVE); 39KDIGM BAND NONREACTIVE (NONREACTIVE); 41KDIGG BAND NONREACTIVE (NONREACTIVE); 41KDIGM BAND NONREACTIVE (NONREACTIVE); 45KDIGG BAND NONREACTIVE (NONREACTIVE); 58KDIGG BAND NONREACTIVE (NONREACTIVE); 66KDIGG BAND NONREACTIVE (NONREACTIVE); 93KDIGG BAND NONREACTIVE (NONREACTIVE)
--- NOTE | 2017-03-03 21:01 | Discharge Summary ---
Discharge Summary Date of Service Mar 03, 2017. 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 Mason Max in cardiology 61-year-old male admitted directly from the office with multiple problems including recurrent supraventricular tachycardia, gastroenteritis, dehydration and presyncope. Patient with long-standing history of supraventricular tachycardia first diagnosed in 2005. He has had multiple episodes. Usually he is able to control them with Valsalva maneuvers. Earlier this year he had an echocardiogram done because of his increased systolic murmur. He was found to have severe mitral regurgitation. He also had severe prolapse of the posterior mitral valve leaflet with suspected rupture. He was referred to [facility]. He underwent repair of the valve. The procedure was well tolerated. He was seen in the office on the day of his admission. His called to let us know that he was not feeding well. His heart was racing. He almost passed out one time. Apparently his symptoms have been going on for a few days specifically the Saturday prior to his admission. In the office he was markedly tachycardic. He was feeling weak and tired. He was markedly dehydrated. He has had multiple episodes of diarrhea and had a severe episode while he was in the office. Arrangements were made for evaluation in the emergency room. Anticipating admission. Patient was seen by Dr. Herrera. He was treated with IV Adenocard. He did convert to a sinus rhythm. He was admitted to PCU with telemetry. PAST MEDICAL HISTORY, SOCIAL HISTORY, FAMILY HISTORY: As noted on admission history and physical ALLERGIES: NONE ADMISSION MEDICATIONS: As noted on the home medication list PHYSICAL EXAMINATION AND LABORATORY TESTS ARE NOTED ON ADMISSION HITORY AND PHYSICAL HOSPITAL COURSE: He was admitted to PCU with telemetry. Resuscitation level I. Laboratory tests were ordered. Cardiology consultation was requested. He was started on IV fluid. He was continued on metoprolol orally. In the emergency room he had a CT scan of the abdomen and pelvis. There was a mention of pericardial effusion. Echocardiogram was done. Dr. Max felt that the effusion was more significant than it has been during his prior hospitalization. His recommendation was to treat the patient with colchicine and ibuprofen. Both medications were started. A gallbladder ultrasound was done. It did show evidence of sludge in his gallbladder. The gallbladder wall was thickened and edematous. He had no evidence of gallstones. He did not have any evidence of any tenderness in the right upper quadrant. A surgical consultation was requested. No surgery was recommended. His condition improved. He was tolerating his diet. He was ambulating without any difficulty. His creatinine normalized from 1.[address] Max did discuss with the patient the possibility of ablation in the future. He was to be continued on colchicine and ibuprofen. Repeat echocardiogram was planned. Followup as an outpatient in cardiology. Patient was discharged home. Followup in the office. His Lyme antibodies were equivocal. Confirmation with Western blot was pending. Will follow with that as an outpatient.
[2017-03-26] MEDS ORDERED: METO50TA16 PO (07:41)
[2017-03-26] MEDS ORDERED: IBUP-103 PO (07:41)
== END 2017-02-21 09:15 | disposition home or self-care (01) | DRG 309 ==
LOC: C.EDB 10:19 → C.2T 13:34 → ENRESERV 13:51
PROVIDERS: ADMIT Internal Medicine; ATTEND Internal Medicine
DX: I47.1 Supraventricular tachycardia (principal); N17.9 Acute kidney failure, unspecified; E87.1 Hypo-osmolality and hyponatremia; I31.3 Pericardial effusion (noninflammatory); I44.7 Left bundle-branch block, unspecified; A08.4 Viral intestinal infection, unspecified; E86.0 Dehydration; K82.9 Disease of gallbladder, unspecified; R94.5 Abnormal results of liver function studies; R76.8 Other specified abnormal immunological findings in serum; Z98.890 Other specified postprocedural states; Z82.49 Family history of ischemic heart disease and other diseases of the circulatory system; Z79.82 Long term (current) use of aspirin; Z79.899 Other long term (current) drug therapy

== ENCOUNTER → 2017-02-27 | Outpatient (CLI) | payer BC ==
[~2017-02-27] MED LIST changes: +CLC6 PO; +IBUP-103 PO; +IBUP-1050 PO; +METO50TA16 PO
[2017-02-27 16:21] LABS: BASO % 0.1 %; BASO ABS # 0.01 K/uL (0-0.2); COMPLETE YES; EOS % 0.3 %; HEMATOCRIT 46.9 % (42-52); IG% 0.3 %; LYMPH % 11.2 %; LYMPH ABS # 1.33 K/uL (1.2-3.4); MEAN CELL VOLUME 86.2 fL (80-100); MEAN CORPUSCULAR HEMOGLOBIN 26.7 pg (25-34); MEAN CORPUSCULAR HGB CONC 30.9 g/dl (32-36); MEAN PLATELET VOLUME 9.8 fL (7.4-10.4); MONO % 7.6 %; NEUT % 80.5 %; PLATELET COUNT 344 K/uL (130-400); RED BLOOD COUNT 5.44 M/uL (4.7-6.1); WHITE BLOOD COUNT 11.87 K/uL (4.8-10.8)
[2017-02-27 16:30] LABS: ALT/SGPT 34 U/L (12-78); AMYLASE 47 U/L (25-115); AST/SGOT 10 U/L (15-37); BLOOD UREA NITROGEN 17 mg/dl (7-18); BUN/CREATININE RATIO 12.5 (10-20); CALCIUM 8.9 mg/dl (8.5-10.1); CARBON DIOXIDE 30 mmol/L (21-32); CHLORIDE 105 mmol/L (98-107); GLUCOSE 114 mg/dl (70-99); POTASSIUM 4.4 mmol/L (3.5-5.1); SODIUM 140 mmol/L (136-145)
[2017-02-27 16:33] LABS: ALB/GLOB RATIO 0.9 (0.9-2); ALKALINE PHOSPHATASE 131 U/L (45-117)
[2017-02-27 18:22] LABS: LYME DISEASE AB IGG NEG (NEG)
[2017-02-27 18:29] LABS: LYME DISEASE AB IGM POS (NEG)
[2017-03-05 15:17] LABS: 18KDIGG BAND NONREACTIVE (NONREACTIVE); 23KDIGG BAND NONREACTIVE (NONREACTIVE); 23KDIGM BAND REACTIVE (NONREACTIVE); 28KDIGG BAND NONREACTIVE (NONREACTIVE); 30KDIGG BAND REACTIVE (NONREACTIVE); 39KDIGG BAND NONREACTIVE (NONREACTIVE); 39KDIGM BAND NONREACTIVE (NONREACTIVE); 41KDIGG BAND REACTIVE (NONREACTIVE); 41KDIGM BAND NONREACTIVE (NONREACTIVE); 45KDIGG BAND NONREACTIVE (NONREACTIVE); 58KDIGG BAND NONREACTIVE (NONREACTIVE); 66KDIGG BAND NONREACTIVE (NONREACTIVE); 93KDIGG BAND NONREACTIVE (NONREACTIVE)
== END | disposition home or self-care (01) ==
LOC: C.LABSPEC 15:41
PROVIDERS: ATTEND Internal Medicine
DX: M79.1 Myalgia (principal)

== ENCOUNTER → 2017-03-18 | Outpatient (CLI) | payer BC ==
[2017-03-18 15:16] LABS: BASO % 0.1 %; BASO ABS # 0.01 K/uL (0-0.2); COMPLETE YES; EOS % 0.1 %; HEMATOCRIT 47.6 % (42-52); IG% 0.3 %; LYMPH % 7.1 %; LYMPH ABS # 1.02 K/uL (1.2-3.4); MEAN CELL VOLUME 84.8 fL (80-100); MEAN CORPUSCULAR HEMOGLOBIN 26.7 pg (25-34); MEAN CORPUSCULAR HGB CONC 31.5 g/dl (32-36); MEAN PLATELET VOLUME 11.1 fL (7.4-10.4); MONO % 7.5 %; NEUT % 84.9 %; PLATELET COUNT 300 K/uL (130-400); RED BLOOD COUNT 5.61 M/uL (4.7-6.1); WHITE BLOOD COUNT 14.31 K/uL (4.8-10.8)
[2017-03-18 15:29] LABS: AST/SGOT 10 U/L (15-37); BLOOD UREA NITROGEN 18 mg/dl (7-18); BUN/CREATININE RATIO 12.6 (10-20); CALCIUM 9.2 mg/dl (8.5-10.1); CARBON DIOXIDE 26 mmol/L (21-32); CHLORIDE 103 mmol/L (98-107); GLUCOSE 145 mg/dl (70-99); MAGNESIUM 1.8 mg/dl (1.8-2.4); POTASSIUM 4.2 mmol/L (3.5-5.1); SODIUM 137 mmol/L (136-145)
[2017-03-18 15:39] LABS: ALB/GLOB RATIO 0.7 (0.9-2); ALKALINE PHOSPHATASE 129 U/L (45-117); ALT/SGPT 19 U/L (12-78)
== END | disposition home or self-care (01) ==
LOC: C.LABSPEC 14:54
PROVIDERS: ATTEND Internal Medicine
DX: R53.83 Other fatigue (principal); R06.00 Dyspnea, unspecified

== ENCOUNTER → 2017-03-21 | Outpatient (CLI) | payer BC ==
--- NOTE | 2017-03-21 17:05 | DIAGNOSTIC IMAGING REPORT ---
CHEST 2 VIEWS ROUTINE CLINICAL HISTORY: 61 years-old Male presenting with DYSPNEA. TECHNIQUE: PA and lateral views of the chest were obtained. COMPARISON: 02/18/2017. FINDINGS: Median sternotomy wires and mitral valve ring unchanged. Decreased prominence of the cardiac silhouette. Persistent left basilar opacity with stable to slight increase in small left pleural effusion. Right lung and pleural space clear. Osseous structures normal. Upper abdomen normal. IMPRESSION: 1. Persistent left basilar opacity, likely extensive left lower lobe volume loss, with associated persistent left pleural effusion. Underlying infection cannot be excluded. Electronically signed by: Benja Nowak M.D. 03/21/2017 5:03 PM Dictated Date/Time: 03/21/2017 5:02 PM
== END | disposition home or self-care (01) ==
LOC: C.RAD 16:30
PROVIDERS: ATTEND Internal Medicine
DX: R06.00 Dyspnea, unspecified (principal)

== ENCOUNTER → 2017-03-26 | Day surgery (SDC) | payer BC ==
[~2017-03-26] VITALS: Ht 177.8 cm; Wt 77.5 kg
[~2017-03-26] MED LIST changes: +COSYNTROPIN INJ 0.25 MCG in SYRINGE 4 ML IV SCH
[2017-03-26 07:41] VITALS: BP 132/90; PULSE 80; TEMP 36.1; O2SAT 99; Ht 177.8 cm; Wt 77.5 kg
[2017-03-26 09:19] VITALS: BP 142/92; PULSE 81; TEMP 36.9; O2SAT 99
== END | disposition home or self-care (01) ==
LOC: C.MTU 07:30
PROVIDERS: ATTEND Internal Medicine
DX: R53.83 Other fatigue (principal)

== ENCOUNTER → 2017-03-28 | Outpatient (CLI) | payer BC ==
[~2017-03-28] MED LIST changes: -CLC6 PO; -COSYNTROPIN INJ 0.25 MCG in SYRINGE 4 ML IV SCH; -IBUP-1050 PO; -METO50TA17 PO
[2017-03-28 17:19] LABS: BASO % 0.1 %; BASO ABS # 0.01 K/uL (0-0.2); COMPLETE YES; EOS % 1.9 %; HEMATOCRIT 41.7 % (42-52); IG% 0.3 %; LYMPH % 20.2 %; LYMPH ABS # 1.52 K/uL (1.2-3.4); MEAN CELL VOLUME 84.8 fL (80-100); MEAN CORPUSCULAR HGB CONC 30.7 g/dl (32-36); MEAN PLATELET VOLUME 9.8 fL (7.4-10.4); MONO % 4.9 %; NEUT % 72.6 %; PLATELET COUNT 264 K/uL (130-400); RED BLOOD COUNT 4.92 M/uL (4.7-6.1); WHITE BLOOD COUNT 7.53 K/uL (4.8-10.8)
== END | disposition home or self-care (01) ==
LOC: C.LABSPEC 17:07
PROVIDERS: ATTEND Internal Medicine
DX: I31.3 Pericardial effusion (noninflammatory) (principal)

== ENCOUNTER → 2017-05-06 | Outpatient (CLI) | payer BC ==
[2017-05-06 17:56] LABS: BLOOD UREA NITROGEN 21 mg/dl (7-18); BUN/CREATININE RATIO 17.8 (10-20); CALCIUM 9.1 mg/dl (8.5-10.1); CARBON DIOXIDE 29 mmol/L (21-32); CHLORIDE 104 mmol/L (98-107); CREATININE 1.16 mg/dl (0.60-1.40); GLUCOSE 82 mg/dl (70-99); POTASSIUM 4.3 mmol/L (3.5-5.1); SODIUM 138 mmol/L (136-145)
== END | disposition home or self-care (01) ==
LOC: C.LAB 16:30
PROVIDERS: ATTEND Internal Medicine
DX: R00.0 Tachycardia, unspecified (principal); E05.90 Thyrotoxicosis, unspecified without thyrotoxic crisis or storm